=== PATIENT | female | born 1950 | race Caucasian/White ===

== ENCOUNTER 2019-03-13 09:53 | Emergency (ER) | payer OTHER ==
--- OUTSIDE RECORDS SUMMARY | 2019-03-13 09:56 | XMS REPORT | Continuity of Care Document ---
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 [facility] Yeast vaginitis Active Problem 04/19/2016 [facility] CHOLECYSTITIS, Active [facility] UNSPECIFIED Medications Medication Details Route Status Patient Ordering Order Source Instructions Provider Date Acetaminophen 300 1 tab, PO, Q4H, Active MG / Codeine PRN Pain Score 2016 [facility] Phosphate 30 MG 4-6, # 60 tab, Oral Tablet 0 Refill(s) [Tylenol with Codeine #3] Acetaminophen 300 2 tab, Route: Inactive MG / Codeine PO, Drug Form: 2016 [facility] Phosphate 30 MG TAB, Dosing Oral Tablet Weight 85.455, [Tylenol with kg, Q4H, PRN Codeine #3] Pain Score 4-6, Start date: 06/08/17 8:56:00 CDT, Duration: 30 day, Stop date: 07/08/17 8:55:00 CDTNotes: Do not exceed 4gm/day of acetaminophen. (Same as: Tylenol with Codeine # 3) D5NS 1,000 mL 1,000 mL, Rate: No Longer 20 ml/hr, Active 2016 [facility] Infuse over: 50 hr, Route: IV, Dosing Weight 85.455 kg, Total Volume: 1,000, Start date: 06/07/17 14:08:00 CDT, Stop date: 07/07/17 14:07:00 CDT LVP solution with 1,000 mL, Rate: Inactive potassium 1000 mL 100 ml/hr, 2016 [facility] Infuse over: 10 hr, Route: IV, Dosing Weight 85.455 kg, Total Volume: 1,000, Start date: 06/07/17 14:05:00 CDT, Duration: 30 day, Stop date: 07/07/17 14:04:00 CDT ketOROLAC 15 15 mg, 1 mL, No Longer mg/mL injectable Route: IV, Drug Active 2016 [facility] solution form: INJ, Q6H, Dosing Weight 85.455, kg, PRN Pain Score 6-10, Start date: 06/07/17 14:03:00 CDT, Duration: 4 day, Stop date: 06/11/17 14:02:00 CDTNotes: (Same as:Toradol) IV bolus must be given >15 seconds. Give IM administration slowly and deeply into the muscle. Not for use > 4 days. Milk of Magnesia 30 ml, Route: Inactive PO, Drug Form: 2016 [facility] SUSP, Dosing Weight 85.455, kg, ONCE, PRN Heartburn, Start date: 06/06/17 17:52:00 CDTNotes: (Same as: Milk of Magnesia, MOM) Omeprazole 40 mg, Route: No Longer PO, Daily, Active 2016 [facility] Dosing Weight 85.455, kg, Start date: 06/06/17 9:00:00 CDT, Duration: 30 day, Stop date: 07/05/17 9:00:00 CDT Lovenox 40 mg, 0.4 mL, No Longer Route: SUB-Q, Active 2016 [facility] Drug form: INJ, [id number], Start date: 06/06/17 8:00:00 CDT, Duration: 30 day, Stop date: 07/05/17 8:00:00 CDTNotes: (Same as: Lovenox) Entereg 12 mg, 1 cap, No Longer Route: PO, Drug Active 2016 [facility] form: CAP, Q12H, Dosing Weight 85.455, kg, Start date: 06/05/17 21:00:00 CDT, Duration: 7 day, Stop date: 06/12/17 14:00:00 CDTNotes: Same as: Entereg Maximum of 15 doses Alert Restricted medication Alvimopan (Entergen) order form must be completed prior to dispensing. Protonix 40 mg, 1 tab, No Longer Route: PO, Drug Active 2016 [facility] form: ECTAB, Q24H, Start date: 06/05/17 21:00:00 CDT, Duration: 30 day, Stop date: 07/04/17 21:00:00 CDTNotes: Tablet should not be chewed or crushed. (Same as: Protonix) Albuterol 0.833 3 mL, Route: No Longer MG/ML / NEB, Drug Form: Active 2016 [facility] Ipratropium SOLN, Dosing [place] 0.167 Weight 85.455, MG/ML Inhalant kg, RTID, Start Solution date: 06/05/17 20:00:00 CDT, Duration: 30 day, Stop date: 07/05/17 14:00:00 CDTNotes: (Same as: Duoneb) Enoxaparin 40 mg, Route: Inactive SUB-Q, Drug 2016 [facility] form: INJ, [id number], Dosing Weight 85.455, kg, Start date: 06/05/17 17:00:00 CDT, Duration: 30 day, Stop date: 07/04/17 17:00:00 CDT Morphine 30 mg, 30 mL, No Longer Route: IV, Active 2016 [facility] Initial Loading Dose: 2 mg, [employer] Dose: 1 mg, [employer] Lockout: 8 minutes, Continuous Basal Rate: 0 mg, 4 Hour Limit (In MG): 30, Drug Form: INJ, Continuous, Start date: 06/05/17 17:00:00 CDT, Duration: 30 day, Stop date: 07/05/17 1...Notes: Dose: Delay: Basal rate: 4hr limit: (Same as:Cheryl) Ondansetron 4 mg, 2 mL, Inactive Route: IVP, 2016 [facility] Drug form: INJ, ONCE, Dosing Weight 85.455, kg, PRN Nausea & Vomiting, Start date: 06/05/17 16:54:00 CDTNotes: (Same as: Azar) MEDICATION WASTE Product Size: 4 mg Product Wasted: ___ mg Fentanyl 50 microgram, 1 Inactive mL, Route: IV, 2016 [facility] Drug form: INJ, Q5Min, Dosing Weight 85.455, kg, PRN Pain Score 7-10, Start date: 06/05/17 16:54:00 CDT, Duration: 4 doses or times, Stop date: Limited # of timesNotes: (Same as: Sublimaze) Preservative free. Naloxone 0.4 mg, 1 mL, Inactive Route: IVP2016 [facility] Drug form: INJ, Q2MIN, Dosing Weight 85.455, kg, PRN Narcotic Reversal, Start date: 06/05/17 16:54:00 CDT, Duration: 8 doses or times, Stop date: Limited # of timesNotes: Same as Narcan Flumazenil 0.2 mg, 2 mL, Inactive Route: IVP2016 [facility] Drug form: INJ, PRN, Dosing Weight 85.455, kg, PRN Benzodiazepine Reversal, Initial dose, Start date: 06/05/17 16:54:00 CDT, Duration: 30 day, Stop date: 07/05/17 16:53:00 CDTNotes: (Same as: Romazicon) Morphine 2 mg, 1 mL, Inactive Route: IVP2016 [facility] Drug form: INJ, Q5Min, Dosing Weight 85.455, kg, PRN Pain Score 4-6, Start date: 06/05/17 16:54:00 CDT, Duration: 5 doses or times, Stop date: Limited # of timesNotes: (Same as:MORPhine Sulfate) Acetaminophen 1,000 mg, 2 Inactive tab, Route: PO, 2016 [facility] Drug form: TAB, ONCE, Dosing Weight 85.455, kg, PRN Pain Score 1-3, Start date: 06/05/17 16:54:00 CDT, Duration: 1 doses or times, Stop date: Limited # of timesNotes: Max acetaminophen 4000 mg/day (4 gm/day). (Same as: Tylenol Extra Strength) Naloxone 0.04 mg, 0.1 Inactive mL, Route: IVP2016 [facility] Drug form: INJ, Q2MIN, Dosing Weight 85.455, kg, PRN Narcotic Reversal, Start date: 06/05/17 16:41:00 CDT, Stop date: 06/05/17 22:00:00 CDTNotes: Same as Narcan Saline Flush 0.9% 10 ml, Route: No Longer IVP, Drug Form: Active 2016 [facility] INJ, Dosing Weight 85.455, kg, PRN, PRN Line Flush, Start date: 06/05/17 16:41:00 CDT, Duration: 30 day, Stop date: 07/05/17 16:40:00 CDTNotes: (Same as: BD Posiflush) D5W 1/2NS + KCL 1,000 mL, Rate: No Longer 20mEq/L 1000ml 100 ml/hr, Active 2016 [facility] (Premix) 1,000 mL Infuse over: 10 hr, Route: IV, Dosing Weight 85.455 kg, Total Volume: 1,000, Start date: 06/05/17 16:41:00 CDT, Duration: 30 day, Stop date: 07/05/17 16:40:00 CDTNotes: PREMIX IV - Do Not Alter WASTE: F/P - Sink; E - [employer] Ondansetron 4 mg, 2 mL, No Longer Route: IVP, Active 2016 [facility] Drug form: INJ, Q6H, Dosing Weight 85.455, kg, PRN Nausea & Vomiting, Start date: 06/05/17 16:41:00 CDT, Duration: 30 day, Stop date: 07/05/17 16:40:00 CDTNotes: (Same as: Azar) MEDICATION WASTE Product Size: 4 mg Product Wasted: ___ mg Diphenhydramine 25 mg, 1 cap, No Longer Route: PO, Drug Active 2016 [facility] form: CAP, Bedtime, Dosing Weight 85.455, kg, PRN Insomnia, Start date: 06/05/17 16:41:00 CDT, Duration: 30 day, Stop date: 07/05/17 16:40:00 CDTNotes: (Same as: Benadryl) Acetaminophen 650 mg, 2 tab, No Longer Route: PO, Drug Active 2016 [facility] form: TAB, Q4H, Dosing Weight 85.455, kg, PRN Pain 1-3/Temp > 100.4 F, Start date: 06/05/17 16:41:00 CDT, Duration: 30 day, Stop date: 07/05/17 16:40:00 CDTNotes: Do not exceed 4 gm/day. (Same as: Tylenol) neostigmine Route: IV, Drug Inactive [facility] (ANES) form: INJ, 2016, Stop date: 06/05/17 16:36:00 CDT glycopyrrolate Route: IV, Drug Inactive 06/05/ [facility] (ANES) form: [id number], Stop date: 06/05/17 16:36:00 CDT morphine Sulfate Route: IV, Drug Inactive (ANES) form: INJ, 2016, Stop date: 06/05/17 16:10:00 CDT ertapenem (ANES) Route: IV, Drug Inactive form: 2016, Stop date: 06/05/17 14:29:00 CDT glycopyrrolate Route: IV, Drug Inactive (ANES) form: 2016, Stop date: 06/05/17 14:04:00 CDT dexamethasone Route: IV, Drug Inactive (ANES) form: [id number], Stop date: 06/05/17 14:04:00 CDT phenylephrine Route: IV, Drug Inactive (ANES) form: 2016, Stop date: 06/05/17 14:04:00 CDT rocuronium (ANES) Route: IV, Drug Inactive form: 2016, Stop date: 06/05/17 14:04:00 CDT propofol (ANES) Route: IV, Drug Inactive form: [id number], Stop date: 06/05/17 14:04:00 CDT fentaNYL (ANES) Route: IV, Drug Inactive form: [id number], Stop date: 06/05/17 14:04:00 CDT midazolam (ANES) Route: IV, Drug Inactive MH form: SOLN, 2016, Stop date: 06/05/17 14:04:00 CDT ondansetron Route: IV, Drug Inactive MH (ANES) form: [id number], Stop date: 06/05/17 14:04:00 CDT lidocaine (ANES) Route: IV, Drug Inactive form: INJ, 2016 [facility] ONCE, Stop date: 06/05/17 14:04:00 CDT Isolyte S (PH Route: IV, Inactive 7.4) 1000 mL Total Volume: 2016 [facility] (ANES) 1,000, Start date: 06/05/17 12:58:00 CDT, Stop date: 06/05/17 13:58:00 CDT Omeprazole PO, Daily, 0 Active Refill(s) 2016 [facility] multivitamin Daily, 0 Active Refill(s) 2016 [facility] gabapentin PO, 0 Refill(s) Active 2016 [facility] Probiotic Formula 1 cap, PO, Active Daily, 0 2016 [facility] Refill(s) Acetaminophen 1,000 mg, Inactive Route: PO, 2016 [facility] ONCALL, Dosing Weight 85.455, kg, Start date: 06/05/17 12:00:00 CDT, Duration: 30 day, Stop date: 07/05/17 11:59:00 CDT Celebrex 200 mg, Route: Inactive PO, Drug form: 2016 [facility] T[place], Dosing Weight 85.455, kg, Start date: 06/05/17 12:00:00 CDT, Duration: 30 day, Stop date: 07/05/17 11:59:00 CDT gabapentin 600 MG 600 mg, 1 tab, Inactive Oral Tablet Route: PO, 2016 [facility] ONCALL, Dosing Weight 85.455, kg, Start date: 06/05/17 12:00:00 CDT, Duration: 30 day, Stop date: 07/05/17 11:59:00 CDT Calcium Chloride 1,000 mL, Rate: No Longer 0.0014 MEQ/ML / 25 ml/hr, Active 2016 [facility] Potassium Infuse over: 40 Chloride 0.004 hr, Route: IV, MEQ/ML / Sodium Dosing Weight Chloride 0.103 85.455 kg, MEQ/ML / Sodium Total Volume: Lactate 0.028 1,000, Start MEQ/ML Injectable date: 06/05/17 Solution 11:27:00 CDT, Duration: 30 day, Stop date: 07/05/17 11:26:00 CDT Entereg 12 mg, 1 cap, Inactive Route: PO, Drug 2016 [facility] form: CAP, ONCE, Start date: 06/05/17 7:38:00 CDT, Stop date: 06/05/17 7:38:00 CDTNotes: Same as: Entereg Maximum of 15 doses Alert Restricted medication Alvimopan (Entergen) order form must be completed prior to dispensing. INVanz + sodium 1 gm, Route: No Longer chloride 0.9% INJ IVPB, ONCE, Active 2016 [facility] 100 mL Start date: 06/05/17 7:36:00 CDT, Stop date: 06/05/17 7:36:00 CDT, ABX Indication: Other (specify in Comments)Notes: (Same as: INVanz) Refrigerate. NOT COMPATIBLE WITH D5W. Stable in refrigerator for 24 hours MEDICATION WASTE Product Size: 1000 mg Product Wasted: ___ mg Allergies, Adverse Reactions, Alerts Substance Category Reaction Severity Reaction Status Date Comments Source type Reported Immunizations Immunization Date Given Site Status Last Updated Comments Source Results Order Name Results Value Reference Date Interpretation Comments Source Range ELECTROLYT AGAP 13.3 meq/L 10.0 - 06/07 ES 20.0 [facility] ELECTROLYT eGFR 77 06/07 Result Comment: The eGFR is calculated using the CKD-EPI formula. In most young, healthy individuals the eGFR will be >90 mL/ min/1.73m2. The eGFR declines with age. An eGFR of 60-89 may be normal in [facility] mL/min/1.7 /2017 some populations, particularly the elderly, for whom the CKD-EPI formula has not been extensively validated. Use of the eGFR is not recommended in the following populations: [facility] 3m2 Individuals with unstable creatinine concentrations, including patients and those with serious co-morbid conditions. Patients with extremes in muscle mass or diet. The data above are obtained from the National Kidney Disease Education Program (NKDEP) which additionally recommends that when the eGFR is used in patients with extremes of body mass index for purposes of drug dosing, the eGFR should be multiplied by the estimated BMI. ELECTROLYT Creatinine 0.80 mg/dL 0.50 - 06/07 ES Lvl 1.40 /2016 [facility] ELECTROLYT Calcium Lvl 8.6 mg/dL 8.5 - 10.5 06/07 [facility] ELECTROLYT Glucose Lvl 103 mg/dL 70 - 99 06/07 [facility] ELECTROLYT BUN 5 mg/dL 7 - 22 06/07 [facility] ELECTROLYT CO2 23 meq/L 24 - 32 06/07 [facility] ELECTROLYT Chloride Lvl 98 meq/L 95 - 109 06/07 [facility] ELECTROLYT Sodium Lvl 130 meq/L 135 - 145 06/07 [facility] ELECTROLYT Potassium 4.3 meq/L 3.5 - 5.1 06/07 Lv [facility] HEMATOLOGY MPV 8.8 fL 7.4 - 10.4 06/07 [facility] HEMATOLOGY Platelet 204 K/CMM 133 - 450 06/07 [facility] HEMATOLOGY RDW 13.6 % 11.5 - 06/07 14. [facility] HEMATOLOGY MCHC 34.0 g/dL 32.0 - 06/07 36.0 [facility] HEMATOLOGY MCV 91.1 fL 80.0 - 06/07 98.0 [facility] HEMATOLOGY MCH 30.9 pg 27.0 - 06/07 31.0 [facility] HEMATOLOGY RBC 4.57 M/CMM 4.20 - 06/07 5. [facility] HEMATOLOGY Hgb 14.2 g/dL 12.0 - 06/07 16. [facility] HEMATOLOGY Hct 41.7 % 36.0 - 06/07 48.0 [facility] HEMATOLOGY WBC 8.7 K/CMM 3.7 - 10.4 06/07 [facility] HEMATOLOGY Basophils 0.2 % 0.0 - 1.0 06/07 [facility] HEMATOLOGY Lymphocytes 1.6 K/CMM 1.0 - 5.5 06/07 [facility] HEMATOLOGY Segs-Bands # 6.4 K/CMM 1.5 - 8.1 06/07 [facility] HEMATOLOGY Eosinophils 0.1 K/CMM 0.0 - 0.5 06/07 [facility] HEMATOLOGY Monocytes # 0.6 K/CMM 0.0 - 0.8 06/07 [facility] HEMATOLOGY Lymphocytes 18.7 % 20.0 - 06/07 40.0 [facility] HEMATOLOGY Eosinophils 0.9 % 0.0 - 4.0 06/07 [facility] HEMATOLOGY Monocytes 7.2 % 2.0 - 12.0 06/07 [facility] HEMATOLOGY Segs 73.0 % 45.0 - 06/07 75.0 [facility] CHEM PANEL Magnesium 2.2 mg/dL 1.8 - 2.4 06/06 [facility] CHEM PANEL Phosphorus 2.6 mg/dL 2.5 - 4.5 06/06 [facility] CHEM PANEL Creatinine 0.90 mg/dL 0.50 - 06/06 [facility] Lvl 1.40 [facility] CHEM PANEL Sodium Lvl 132 meq/L 135 - 145 06/06 [facility] CHEM PANEL CO2 24 meq/L 24 - 32 06/06 [facility] CHEM PANEL AGAP 11.1 meq/L 10.0 - 06/06 MH 20.0 [facility] CHEM PANEL Chloride Lvl 101 meq/L 95 - 109 06/06 [facility] CHEM PANEL Calcium Lvl 8.7 mg/dL 8.5 - 10.5 06/06 [facility] CHEM PANEL eGFR 66 06/06 Result Comment: The eGFR is calculated using the CKD-EPI formula. In most young, healthy individuals the eGFR will be >90 mL/ min/1.73m2. The eGFR declines with age. An eGFR of 60-89 may be normal in mL/min/1. some populations, particularly the elderly, for whom the CKD-EPI formula has not been extensively validated. Use of the eGFR is not recommended in the following populations: [place] [id number] Individuals with unstable creatinine concentrations, including patients and those with serious co-morbid conditions. Patients with extremes in muscle mass or diet. The data above are obtained from the National Kidney Disease Education Program (NKDEP) which additionally recommends that when the eGFR is used in patients with extremes of body mass index for purposes of drug dosing, the eGFR should be multiplied by the estimated BMI. CHEM PANEL Potassium 4.1 meq/L 3.5 - 5.1 06/06 [facility] CHEM PANEL BUN 9 mg/dL 7 - 22 06/06 [facility] CHEM PANEL Glucose Lvl 131 mg/dL 70 - 99 06/06 [facility] HEMATOLOGY Monocytes # 0.9 K/CMM 0.0 - 0.8 06/06 [facility] HEMATOLOGY Lymphocytes 1.4 K/CMM 1.0 - 5.5 06/06 MH # /2016 [facility] HEMATOLOGY Segs-Bands # 8.9 K/CMM 1.5 - 8.1 06/06 [facility] HEMATOLOGY Monocytes 7.8 % 2.0 - 12.0 06/06 [facility] Lymphocytes 12.3 % 20.0 - 06/06 MH 40.0 /2017 [facility] HEMATOLOGY Eosinophils 0.1 % 0.0 - 4.0 06/06 [facility] HEMATOLOGY Basophils 0.3 % 0.0 - 1.0 06/06 [facility] HEMATOLOGY Segs 79.5 % 45.0 - 06/06 MH 75.0 /2016 [facility] HEMATOLOGY Hgb 14.5 g/dL 12.0 - 06/06 16.0 [facility] HEMATOLOGY WBC 11.2 K/CMM 3.7 - 10.4 06/06 [facility] RBC 4.67 M/CMM 4.20 - 06/06 MH 5.40 /2016 [facility] MCHC 34.2 g/dL 32.0 - 06/06 36.0 [facility] HEMATOLOGY RDW 14.0 % 11.5 - 06/06 14.5 [facility] HEMATOLOGY MPV 9.2 fL 7.4 - 10.4 06/06 [facility] HEMATOLOGY Platelet 200 K/CMM 133 - 450 06/06 [facility] Hct 42.4 % 36.0 - 06/06 48.0 [facility] MCH 31.1 pg 27.0 - 06/06 31.0 [facility] MCV 90.8 fL 80.0 - 06/06 98.0 [facility] Chest Chest 1view Patient Name: ELIJAH CHARLES 06/06 - 1view DX DX /2016 - [facility] : 1950; Age: 66 years y/o Female MR: [id number] Read by: Maldonado Severino MD Dictated Date/time: 06/06/17 08:31 Electronically Signed by: Maldonado Severino MD 06/06/17 08:32 FINAL REPORT Study: Chest 1view DX dated 06/06/2017. Clinical Indication: COPD Comparison: None Mildly decreased lung volumes. Heart size is normal. Aortic calcification. Mediastinal structures otherwise unremarkable. Mild patchy consolidation both lung bases may be due to atelectasis, pneumonia o r other nonspecific alveolitis. No other focal infiltrates within the lungs , no edema and no pneumothorax. SL: [id number] BLOOD BANK ABO/Rh O NEG 06/05 RESULTS /2016 [facility] BLOOD BANK Antibody Negative 06/05 RESULTS Scrn [facility] (06/05/17 11:29 AM) ELECTROLYT AGAP 10.6 meq/L 10.0 - 06/05 ES 20.0 [facility] ELECTROLYT eGFR 58 06/05 Result Comment: The eGFR is calculated using the CKD-EPI formula. In most young, healthy individuals the eGFR will be >90 mL/ min/1.73m2. The eGFR declines with age. An eGFR of 60-89 may be normal in [facility] mL/min/1. some populations, particularly the elderly, for whom the CKD-EPI formula has not been extensively validated. Use of the eGFR is not recommended in the following populations: [facility] 3m2 Individuals with unstable creatinine concentrations, including patients and those with serious co-morbid conditions. Patients with extremes in muscle mass or diet. The data above are obtained from the National Kidney Disease Education Program (NKDEP) which additionally recommends that when the eGFR is used in patients with extremes of body mass index for purposes of drug dosing, the eGFR should be multiplied by the estimated BMI. ELECTROLYT Glucose Lvl 93 mg/dL 70 - 99 06/05 ES [facility] ELECTROLYT BUN 12 mg/dL 7 - 22 06/05 ES [facility] ELECTROLYT Creatinine 1.00 mg/dL 0.50 - 06/05 [facility] Lvl 1.40 [facility] ELECTROLYT CO2 27 meq/L 24 - 32 06/05 ES [facility] ELECTROLYT Calcium Lvl 9.3 mg/dL 8.5 - 10.5 06/05 ES [facility] ELECTROLYT Chloride Lvl 104 meq/L 95 - 109 06/05 ES [facility] ELECTROLYT Sodium Lvl 138 meq/L 135 - 145 06/05 ES [facility] ELECTROLYT Potassium 3.6 meq/L 3.5 - 5.1 06/05 ES Lvl /2016 [facility] HEMATOLOGY INR 1.06 0.85 - 06/05 1.17 [facility] HEMATOLOGY PT 14.0 s 12.0 - 06/05 14.7 [facility] HEMATOLOGY PTT 34.8 s 22.9 - 06/05 MH 35.8 /2017 [facility] HEMATOLOGY Basophils # 0.0 K/CMM 0.0 - 0.2 06/05 [facility] HEMATOLOGY Eosinophils 0.1 K/CMM 0.0 - 0.5 06/05 MH # /2016 [facility] HEMATOLOGY Lymphocytes 1.6 K/CMM 1.0 - 5.5 06/05 MH # /2016 [facility] HEMATOLOGY Monocytes # 0.4 K/CMM 0.0 - 0.8 06/05 [facility] HEMATOLOGY Basophils 0.6 % 0.0 - 1.0 06/05 [facility] HEMATOLOGY Eosinophils 2.5 % 0.0 - 4.0 06/05 [facility] HEMATOLOGY Segs 56.9 % 45.0 - 06/05 75.0 [facility] HEMATOLOGY Lymphocytes 32.2 % 20.0 - 06/05 40.0 [facility] HEMATOLOGY Monocytes 7.8 % 2.0 - 12.0 06/05 [facility] HEMATOLOGY Segs-Bands # 2.9 K/CMM 1.5 - 8.1 06/05 [facility] HEMATOLOGY MPV 9.3 fL 7.4 - 10.4 06/05 [facility] HEMATOLOGY Hct 42.3 % 36.0 - 06/05 48.0 [facility] HEMATOLOGY WBC 5.1 K/CMM 3.7 - 10.4 06/05 [facility] HEMATOLOGY Platelet 213 K/CMM 133 - 450 06/05 [facility] HEMATOLOGY RDW 13.6 % 11.5 - 06/05 14. [facility] HEMATOLOGY MCH 31.0 pg 27.0 - 06/05 31.0 [facility] HEMATOLOGY MCV 89.1 fL 80.0 - 06/05 98.0 [facility] HEMATOLOGY RBC 4.75 M/CMM 4.20 - 06/05 5.40 [facility] HEMATOLOGY Hgb 14.7 g/dL 12.0 - 06/05 16.0 [facility] HEMATOLOGY MCHC 34.8 g/dL 32.0 - 06/05 36.0 [facility] Vital Signs Vital Sign Value Date Comments [facility] Systolic (mm Hg) 129 06/08/2017 [facility] Diastolic (mm Hg) 84 06/08/2017 [facility] Heart Rate 65 06/08/2017 [facility] Respitory Rate 18 06/08/2017 [facility] Temperature Oral (F) 97.3 F 06/08/2017 [facility] Systolic (mm Hg) 142 06/08/2017 [facility] Diastolic (mm Hg) 82 06/08/2017 [facility] Heart Rate 79 06/08/2017 [facility] Temperature Oral (F) 98.5 F 06/08/2017 [facility] Respitory Rate 18 06/08/2017 [facility] Respitory Rate 20 06/08/2017 [facility] Systolic (mm Hg) 129 06/08/2017 [facility] Diastolic (mm Hg) 79 06/08/2017 [facility] Temperature Oral (F) 98.3 F 06/08/2017 [facility] Heart Rate 91 06/08/2017 [facility] Height 162.56 cm 06/06/2017 [facility] Weight 85.455 06/06/2017 [facility] BMI Calculated 32.34 06/06/2017 [facility] Weight 85.455 06/02/2017 [facility] BMI Calculated 32.34 06/02/2017 [facility] Height 162.56 cm 06/02/2017 [facility] Encounters Location Location Encounter Encounter Reason Attending ADM DC Status Source Details Type Number For Provider Date Date Visit Moonat Unknown [id number] 02/22 02/22 [facility] [id number] [id number] [facility] Unknown [id number] 02/22 02/22 [facility] [id number] [facility] [id number] [facility] Unknown [id number] 04/18 04/18 [facility] [id number] [facility] [id number] [facility] [id number] [facility] Procedures Procedure Code Date Perfomer Comments Source Abdominal [id number] [facility] hysterectomy Hip replacement [id number] [facility] Procedure on wrist [id number] [facility] Tonsillectomy [id number] [facility]
--- OUTSIDE RECORDS SUMMARY | 2019-03-13 09:57 | XMS REPORT ---
:1950 Author Organization eClinicalWorks Care Team Providers Name Role Phone AndregastonOfe Provider Role Unavailable Encounters Encounter Location Date Unknown [facility] February 23, [address] 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 2012April 11, 2016 Last colonoscopy: . 2012April 11, 2016 last mammogram: . 2012April 11, 2016 Tobacco Use: . Are you a:: never smoker April 11, 2016 Marital Status: . April 11, 2016 Alcohol: yes. 1 Glass wine nightly to help sleep April 11, 2016 Summary Purpose eClinicalWorks Submission
--- OUTSIDE RECORDS SUMMARY | 2019-03-13 09:57 | XMS REPORT ---
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 2012February 23, 2016 Last colonoscopy: . 2012February 23, 2016 last mammogram: . 2012February 23, 2016 Tobacco Use: . Are you a:: never smoker February 23, 2016 Marital Status: . February 23, 2016 Alcohol: yes. 1 Glass wine nightly to help sleep February 23, 2016 Summary Purpose eClinicalWorks Submission
[2019-03-13] MEDS ORDERED: NA CHLORIDE 0.9% 500 ML ONE (10:36)
[2019-03-13] MEDS ORDERED: LEVALBUTEROL 1.25 MG/3 ML NEB ONE (10:36)
[2019-03-13 10:43] LABS: Absolute Lymphocytes (CBC) 1.8 K/uL (0.7-4.9); Absolute Monocytes 0.3 K/uL (0.1-1.3); Absolute Neutrophil 2.3 K/uL (1.8-8.0); Basophils % 1.2 % (0-1.3); Hematocrit 41.8 % (36.0-45.0); Lymphocytes % 37.9 % (15.3-44.8); Monocytes % 7.5 % (3.3-12.3); RBC Red Blood Cell Count 4.57 M/uL (3.86-4.86)
[2019-03-13 10:57] LABS: Protime INR 0.96
[2019-03-13 10:58] LABS: BUN Blood Urea Nitrogen 20 mg/dL (7-18); Bicarbonate 27 mmol/L (21-32); Glucose Level 86 mg/dL (74-106); NT PRO-BNP 83 pg/mL (<125); Potassium 3.9 mmol/L (3.5-5.1); Sodium Level 140 mmol/L (136-145); Troponin (Emerg Dept Use Only) < 0.02 ng/mL (0.0-0.045)
--- NOTE | 2019-03-13 11:01 | RAD REPORT ---
EXAM DESCRIPTION: RAD - Chest Single View - 03/13/2019 10:25 am CLINICAL HISTORY: DYSPNEA Chest pain. COMPARISON: Chest Pa And Lat (2 Views) dated 03/14/2017; Chest Pa And Lat (2 Views) dated 06/21/2016; CHEST PA AND LAT 2 VIEW dated 05/05/2014; CHEST PA AND LAT 2 VIEW dated 12/10/2013 FINDINGS: Portable technique limits examination quality. The lungs are grossly clear. The heart is normal in size. No displaced fractures. IMPRESSION: No acute intrathoracic process suspected.
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
[2019-03-13] MEDS ORDERED: METHYLPREDNISOLONE 125 MG INJ ONE (11:42)
[2019-03-13 15:15] VITALS: TEMP 97.9
[2019-03-13 15:16] VITALS: BP 126/54; O2SAT 100
== END 2019-03-13 11:53 | disposition home or self-care (01) ==
LOC: ER 09:53
DX: R06.00 Dyspnea, unspecified (principal); R05 Cough; E86.0 Dehydration
CPT/HCPCS: 96361; 93005; 85025; 80048; 36415; 85610; 85730; 84484; 84145; 83880; 71045; 96374; 99285; J2930

== ENCOUNTER 2020-11-26 12:31 | Emergency (ER) | payer OTHER ==
--- OUTSIDE RECORDS SUMMARY | 2020-11-26 12:33 | XMS REPORT | Continuity of Care Document ---
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 [facility] Yeast vaginitis Active Problem 04/19/2016 [facility] Gastroesophageal Active Problem 06/11/2017 reflux disease [facility] (disorder) Pulmonary emphysema Active Problem 06/11/2017 (disorder) [facility] CHOLECYSTITIS, Active UNSPECIFIED [facility] Medications Medication Details Route Status Patient Ordering Order Source Instructions Provider Date Acetaminophen 300 1 tab, PO, Q4H, Active MG / Codeine PRN Pain Score 2017 [facility] Phosphate 30 MG 4-6, # 60 tab, Oral Tablet 0 Refill(s) [Tylenol with Codeine #3] Acetaminophen 300 Notes: Do not Inactive MG / Codeine exceed 4gm/day 2017 [facility] Phosphate 30 MG of Oral Tablet acetaminophen. [Tylenol with (Same as: Codeine #3] Tylenol with Codeine # 3) D5NS 1,000 mL 1,000 mL, Rate: No Longer 20 ml/hr, Active 2016 [facility] Infuse over: 50 hr, Route: IV, Dosing Weight 85.455 kg, Total Volume: 1,000, Start date: 06/07/17 14:08:00 CDT, Stop date: 07/07/17 14:07:00 CDT LVP solution with 1,000 mL, Rate: Inactive 06/07 potassium 1000 mL 100 ml/hr, 2017 [facility] Infuse over: 10 hr, Route: IV, Dosing Weight 85.455 kg, Total Volume: 1,000, Start date: 06/07/17 14:05:00 CDT, Duration: 30 day, Stop date: 07/07/17 14:04:00 CDT ketOROLAC 15 4 days. No Longer mg/mL injectable Active [address] [facility] [address] solution Milk of Magnsukhi Notes: (Same Inactive H as: Milk of 2016 [facility] Magnsukhi, MOM) Omeprazole 40 mg, Route: No Longer PO, Daily, Active 2016 [facility] Dosing Weight 85.455, kg, Start date: 06/06/17 9:00:00 CDT, Duration: 30 day, Stop date: 07/05/17 9:00:00 CDT Lovenox Notes: (Same No Longer as: Lovenox) Active 2016 [facility] Entereg Notes: Same as: No Longer Entereg Active 2016 [facility] Maximum of 15 doses Alert Restricted medication Alvimopan (Entergen) order form must be completed prior to dispensing. Protonix Notes: Tablet No Longer should not be Active 2016 [facility] chewed or crushed. (Same as: Protonix) Albuterol 0.833 Notes: (Same No Longer H MG/ML / as: Duoneb) Active 2016 [facility] Ipratropium Dunbar 0.167 MG/ML Inhalant Solution Enoxaparin 40 mg, Route: Inactive SUB-Q, Drug 2016 [facility] form: INJ, [id number], Dosing Weight 85.455, kg, Start date: 06/05/17 17:00:00 CDT, Duration: 30 day, Stop date: 07/04/17 17:00:00 CDT Morphine Notes: Dose: No Longer Delay: Active 2016 [facility] Basal rate: 4hr limit: (Same as:Rapi-Ject) Ondansetron Notes: (Same Inactive as: Zofran) 2016 [facility] MEDICATION WASTE Product Size: 4 mg Product Wasted: ___ mg Fentanyl Notes: (Same Inactive as: Sublimaze) 2016 [facility] Preservative free. Naloxone Notes: Same as Inactive Narcan 2016 [facility] Flumazenil Notes: (Same Inactive as: Romazicon) 2016 [facility] Morphine Notes: (Same Inactive as:MORPhine 2016 [facility] Sulfate) Acetaminophen Notes: Max Inactive acetaminophen 2017 [facility] 4000 mg/day (4 gm/day). (Same as: Tylenol Extra Strength) Naloxone Notes: Same as Inactive Narcan 2016 [facility] Saline Flush 0.9% Notes: (Same No Longer as: BD Active 2016 [facility] Posiflush) D5W 1/2NS + KCL Notes: PREMIX No Longer 20mEq/L 1000ml IV - Do Not Active 2016 [facility] (Premix) 1,000 mL Alter WASTE: F/P - Sink; E - [employer] Ondansetron Notes: (Same No Longer as: Zofran) Active 2016 [facility] MEDICATION WASTE Product Size: 4 mg Product Wasted: ___ mg Diphenhydramine Notes: (Same No Longer H as: Benadryl) Active 2016 [facility] Acetaminophen Notes: Do not No Longer exceed 4 Active 2016 [facility] gm/day. (Same as: Tylenol) neostigmine Route: IV, Drug Inactive (ANES) form: INJ, 2016 [facility] , Stop date: 06/05/17 16:36:00 CDT glycopyrrolate Route: IV, Drug Inactive (ANES) form: INJ2016 [facility] , Stop date: 06/05/17 16:36:00 CDT morphine Sulfate Route: IV, Drug Inactive (ANES) form: 2016 [facility] , Stop date: 06/05/17 16:10:00 CDT ertapenem (ANES) Route: IV, Drug Inactive form: INJ, 2016 [facility] , Stop date: 06/05/17 14:29:00 CDT glycopyrrolate Route: IV, Drug Inactive (ANES) form: 2016 [facility] , Stop date: 06/05/17 14:04:00 CDT dexamethasone Route: IV, Drug Inactive H (ANES) form: 2016 [facility] , Stop date: 06/05/17 14:04:00 CDT phenylephrine Route: IV, Drug Inactive 06/05/ M H (ANES) form: 2016 [facility] ONCE, Stop date: 06/05/17 14:04:00 CDT rocuronium (ANES) Route: IV, Drug Inactive 06/05 form: INJ, 2016 [facility] , Stop date: 06/05/17 14:04:00 CDT propofol (ANES) Route: IV, Drug Inactive form: INJ, 2016 [facility] ONCE, Stop date: 06/05/17 14:04:00 CDT fentaNYL (ANES) Route: IV, Drug Inactive form: INJ, 2016 [facility] , Stop date: 06/05/17 14:04:00 CDT midazolam (ANES) Route: IV, Drug Inactive form: SOLN, 2016 [facility] , Stop date: 06/05/17 14:04:00 CDT ondansetron Route: IV, Drug Inactive (ANES) form: INJ, 2016 [facility] , Stop date: 06/05/17 14:04:00 CDT lidocaine (ANES) Route: IV, Drug Inactive form: INJ, 2016 [facility] , Stop date: 06/05/17 14:04:00 CDT Isolyte S (PH Route: IV, Inactive 7.4) 1000 mL Total Volume: 2016 [facility] (ANES) 1,000, Start date: 06/05/17 12:58:00 CDT, Stop date: 06/05/17 13:58:00 CDT Omeprazole PO, Daily, 0 Active Refill(s) 2016 [facility] multivitamin Daily, 0 Active Refill(s) 2016 [facility] gabapentin PO, 0 Refill(s) Active 2016 [facility] Probiotic Formula 1 cap, PO, Active Daily, 0 2016 [facility] Refill(s) Acetaminophen 1,000 mg, Inactive Route: PO, 2016 [facility] ONCALL, Dosing Weight 85.455, kg, Start date: 06/05/17 12:00:00 CDT, Duration: 30 day, Stop date: 07/05/17 11:59:00 CDT Celebrex 200 mg, Route: Inactive PO, Drug form: 2016 [facility] CAP, ONCALL, Dosing Weight 85.455, kg, Start date: 06/05/17 12:00:00 CDT, Duration: 30 day, Stop date: 07/05/17 11:59:00 CDT gabapentin 600 MG 600 mg, 1 tab, Inactive Oral Tablet Route: PO, 2016 [facility] ONCALL, Dosing Weight 85.455, kg, Start date: 06/05/17 12:00:00 CDT, Duration: 30 day, Stop date: 07/05/17 11:59:00 CDT Calcium Chloride 1,000 mL, Rate: No Longer 06/05 0.0014 MEQ/ML / 25 ml/hr, Active 2016 [facility] est Potassium Infuse over: 40 Chloride 0.004 hr, Route: IV, MEQ/ML / Sodium Dosing Weight Chloride 0.103 85.455 kg, MEQ/ML / Sodium Total Volume: Lactate 0.028 1,000, Start MEQ/ML Injectable date: 06/05/17 Solution 11:27:00 CDT, Duration: 30 day, Stop date: 07/05/17 11:26:00 CDT Entereg Notes: Same as: Inactive Entereg 2016 [facility] Maximum of 15 doses Alert Restricted medication Alvimopan (Entergen) order form must be completed prior to dispensing. INVanz + sodium Notes: (Same No Longer H chloride 0.9% INJ as: INVanz) Active 2016 [facility] 100 mL Refrigerate. NOT COMPATIBLE WITH D5W. Stable in refrigerator for 24 hours MEDICATION WASTE Product Size: 1000 mg Product Wasted: ___ mg Allergies, Adverse Reactions, Alerts No Known Medication Allergies Immunizations No Data Provided for This Section Results Order Name Results Value Reference Date Interpretation Comments Wendy rce Range ELECTROLYTE AGAP 13.3 10.0 - 06/07 S 20.0 /2016 [facility] ELECTROLYTE eGFR 77 06/07 Result S /2016 Comment: The [facility] eGFR is calculated using the CKD-EPI formula. In most young, healthy individuals the eGFR will be >90 mL/min/1.73m2 . The eGFR declines with age. An eGFR of 60-89 may be normal in some populations, particularly the elderly, for whom the CKD-EPI formula has not been extensively validated. Use of the eGFR is not recommended in the following populations:< br/>
Aaliyah viduals with unstable creatinine concentration s, including patients and those with serious co-morbid conditions.<b r/>
Patie nts with extremes in muscle mass or diet.

The data above are obtained from the National Kidney Disease Education Program (NKDEP) which additionally recommends that when the eGFR is used in patients with extremes of body mass index for purposes of drug dosing, the eGFR should be multiplied by the estimated BMI. ELECTROLYTE Creatinine 0.80 0.50 - 06/07 MH S Lvl 1.40 /2016 [facility] ELECTROLYTE Calcium Lvl 8.6 8.5 - 10.5 06/07 S /2016 [facility] ELECTROLYTE Glucose Lvl 103 70 - 99 06/07 S /2016 [facility] ELECTROLYTE BUN 5 7 - 22 06/07 S [facility] ELECTROLYTE CO2 23 24 - 32 06/07 S /2016 [facility] ELECTROLYTE Chloride Lvl 98 95 - 109 06/07 S /2016 [facility] ELECTROLYTE Sodium Lvl 130 135 - 145 06/07 S /2016 [facility] ELECTROLYTE Potassium 4.3 3.5 - 5.1 06/07 S Lvl /2016 [facility] HEMATOLOGY MPV 8.8 7.4 - 10.4 06/07 [facility] HEMATOLOGY Platelet 204 133 - 450 06/07 /2016 [facility] HEMATOLOGY RDW 13.6 11.5 - 06/07 MH 14.5 /2016 [facility] HEMATOLOGY MCHC 34.0 32.0 - 06/07 MH 36.0 /2016 [facility] HEMATOLOGY MCV 91.1 80.0 - 06/07 MH 98.0 /2017 [facility] HEMATOLOGY MCH 30.9 27.0 - 06/07 MH 31.0 /2017 [facility] HEMATOLOGY RBC 4.57 4.20 - 06/07 MH 5.40 /2017 [facility] HEMATOLOGY Hgb 14.2 12.0 - 06/07 MH 16.0 [facility] HEMATOLOGY Hct 41.7 36.0 - 06/07 MH 48.0 /2017 [facility] HEMATOLOGY WBC 8.7 3.7 - 10.4 06/07 /2016 [facility] HEMATOLOGY Basophils 0.2 0.0 - 1.0 06/07 /2016 [facility] HEMATOLOGY Lymphocytes 1.6 1.0 - 5.5 06/07 MH # /2017 [facility] HEMATOLOGY Segs-Bands # 6.4 1.5 - 8.1 06/07 /2016 [facility] HEMATOLOGY Eosinophils 0.1 0.0 - 0.5 06/07 MH # /2017 [facility] HEMATOLOGY Monocytes # 0.6 0.0 - 0.8 06/07 [facility] HEMATOLOGY Lymphocytes 18.7 20.0 - 06/07 MH 40.0 /2017 [facility] HEMATOLOGY Eosinophils 0.9 0.0 - 4.0 06/07 /2016 [facility] HEMATOLOGY Monocytes 7.2 2.0 - 12.0 06/07 [facility] HEMATOLOGY Segs 73.0 45.0 - 06/07 MH 75.0 /2017 [facility] CHEM PANEL Magnesium 2.2 1.8 - 2.4 06/06 MH Lvl /2016 [facility] CHEM PANEL Phosphorus 2.6 2.5 - 4.5 06/06 [facility] CHEM PANEL Creatinine 0.90 0.50 - 06/06 MH Lvl 1.40 /2016 [facility] CHEM PANEL Sodium Lvl 132 135 - 145 06/06 [facility] CHEM PANEL CO2 24 24 - 32 06/06 [facility] CHEM PANEL AGAP 11.1 10.0 - 06/06 MH 20.0 [facility] CHEM PANEL Chloride Lvl 101 95 - 109 06/06 [facility] CHEM PANEL Calcium Lvl 8.7 8.5 - 10.5 06/06 [facility] CHEM PANEL eGFR 66 06/06 Comment: The [facility] eGFR is calculated using the CKD-EPI formula. In most young, healthy individuals the eGFR will be >90 mL/min/1.73m2 . The eGFR declines with age. An eGFR of 60-89 may be normal in some populations, particularly the elderly, for whom the CKD-EPI formula has not been extensively validated. Use of the eGFR is not recommended in the following populations:< br/>
Aaliyah viduals with unstable creatinine concentration s, including patients and those with serious co-morbid conditions.<b r/>
Patie nts with extremes in muscle mass or diet.

The data above are obtained from the National Kidney Disease Education Program (NKDEP) which additionally recommends that when the eGFR is used in patients with extremes of body mass index for purposes of drug dosing, the eGFR should be multiplied by the estimated BMI. CHEM PANEL Potassium 4.1 3.5 - 5.1 06/06 [facility] CHEM PANEL BUN 9 7 - 22 06/06 [facility] CHEM PANEL Glucose Lvl 131 70 - 99 06/06 [facility] Monocytes # 0.9 0.0 - 0.8 06/06 /2016 [facility] Lymphocytes 1.4 1.0 - 5.5 06/06 MH # /2017 [facility] HEMATOLOGY Segs-Bands # 8.9 1.5 - 8.1 06/06 [facility] Monocytes 7.8 2.0 - 12.0 06/06 [facility] Lymphocytes 12.3 20.0 - 06/06 MH 40.0 /2017 [facility] HEMATOLOGY Eosinophils 0.1 0.0 - 4.0 06/06 [facility] HEMATOLOGY Basophils 0.3 0.0 - 1.0 06/06 [facility] HEMATOLOGY Segs 79.5 45.0 - 06/06 MH 75.0 /2016 [facility] Hgb 14.5 12.0 - 06/06 MH 16.0 [facility] WBC 11.2 3.7 - 10.4 06/06 [facility] RBC 4.67 4.20 - 06/06 MH 5.40 /2016 [facility] MCHC 34.2 32.0 - 06/06 MH 36.0 /2016 [facility] RDW 14.0 11.5 - 06/06 MH 14.5 [facility] MPV 9.2 7.4 - 10.4 06/06 [facility] Platelet 200 133 - 450 06/06 [facility] Hct 42.4 36.0 - 06/06 48.0 [facility] MCH 31.1 27.0 - 06/06 MH 31.0 [facility] MCV 90.8 80.0 - 06/06 98.0 [facility] BLOOD BANK ABO/Rh O NEG 06/05 RESULTS /2016 [facility] BLOOD BANK Antibody Negative 06/05 RESULTS Scrn (06/05/17 11:29 AM) /2016 [facility] ELECTROLYTE AGAP 10.6 10.0 - 06/05 S 20.0 [facility] ELECTROLYTE eGFR 58 06/05 Result S /2016 Comment: The [facility] eGFR is calculated using the CKD-EPI formula. In most young, healthy individuals the eGFR will be >90 mL/min/1.73m2 . The eGFR declines with age. An eGFR of 60-89 may be normal in some populations, particularly the elderly, for whom the CKD-EPI formula has not been extensively validated. Use of the eGFR is not recommended in the following populations:< br/>
Aaliyah viduals with unstable creatinine concentration s, including patients and those with serious co-morbid conditions.<b r/>
Patie nts with extremes in muscle mass or diet.

The data above are obtained from the National Kidney Disease Education Program (NKDEP) which additionally recommends that when the eGFR is used in patients with extremes of body mass index for purposes of drug dosing, the eGFR should be multiplied by the estimated BMI. ELECTROLYTE Glucose Lvl 93 70 - 99 06/05 MH S /2016 [facility] ELECTROLYTE BUN 12 7 - 22 06/05 S [facility] ELECTROLYTE Creatinine 1.00 0.50 - 06/05 MH S Lvl 1.40 /2016 [facility] ELECTROLYTE CO2 27 24 - 32 06/05 S [facility] ELECTROLYTE Calcium Lvl 9.3 8.5 - 10.5 06/05 S [facility] ELECTROLYTE Chloride Lvl 104 95 - 109 06/05 S [facility] ELECTROLYTE Sodium Lvl 138 135 - 145 06/05 S [facility] ELECTROLYTE Potassium 3.6 3.5 - 5.1 06/05 S Lvl /2017 [facility] HEMATOLOGY INR 1.06 0.85 - 06/05 MH 1.17 /2016 [facility] HEMATOLOGY PT 14.0 12.0 - 06/05 MH 14.7 /2016 [facility] HEMATOLOGY PTT 34.8 22.9 - 06/05 MH 35.8 /2017 [facility] HEMATOLOGY Basophils # 0.0 0.0 - 0.2 06/05 [facility] HEMATOLOGY Eosinophils 0.1 0.0 - 0.5 / MH # /2017 [facility] HEMATOLOGY Lymphocytes 1.6 1.0 - 5.5 / MH # /2017 [facility] HEMATOLOGY Monocytes # 0.4 0.0 - 0.8 06/05 [facility] HEMATOLOGY Basophils 0.6 0.0 - 1.0 06/05 [facility] HEMATOLOGY Eosinophils 2.5 0.0 - 4.0 06/05 /2016 [facility] HEMATOLOGY Segs 56.9 45.0 - 06/05 MH 75.0 /2017 [facility] HEMATOLOGY Lymphocytes 32.2 20.0 - 06/05 MH 40.0 /2017 [facility] HEMATOLOGY Monocytes 7.8 2.0 - 12.0 06/05 [facility] HEMATOLOGY Segs-Bands # 2.9 1.5 - 8.1 06/05 [facility] HEMATOLOGY MPV 9.3 7.4 - 10.4 06/05 [facility] HEMATOLOGY Hct 42.3 36.0 - 06/05 48.0 /2016 [facility] HEMATOLOGY WBC 5.1 3.7 - 10.4 06/05 [facility] HEMATOLOGY Platelet 213 133 - 450 06/05 [facility] HEMATOLOGY RDW 13.6 11.5 - 06/05 14.5 [facility] HEMATOLOGY MCH 31.0 27.0 - 06/05 31.0 /2016 [facility] HEMATOLOGY MCV 89.1 80.0 - 06/05 98.0 /2016 [facility] HEMATOLOGY RBC 4.75 4.20 - 06/05 5.40 /2016 [facility] HEMATOLOGY Hgb 14.7 12.0 - 06/05 16.0 [facility] HEMATOLOGY MCHC 34.8 32.0 - 06/05 36.0 [facility] Pathology Reports No Data Provided for This Section Diagnostic Reports Report Value Date Source Chest 1view DX Patient Name: ELIJAH CHARLES 06/06/2017 [facility] : 1950; Age: 66 years y/o Female MR: [id number] Study: Chest 1view DX dated 06/06/2017. Clinical Indication: COPD Comparison: None Mildly decreased lung volume s. Heart size is normal. Aortic calcification. Mediastinal structures otherwise unremarkable. Mild patchy consolidation both lung bases may be due to atelectasis, pneumonia o r other nonspecific alveolit is. No other focal infiltrates within the lungs, no edema and no pneumothorax. SL: [id number] Consultation Notes No Data Provided for This Section Discharge Summaries No Data Provided for This Section History and Physicals No Data Provided for This Section Vital Signs Vital Sign Value Date Comments Source Systolic (mm Hg) 129 06/08/2017 [facility] t Diastolic (mm Hg) 84 06/08/2017 [facility] Heart Rate 65 06/08/2017 [facility] Respitory Rate 18 06/08/2017 [facility] Temperature Oral (F) 97.3 F 06/08/2017 [facility] Systolic (mm Hg) 142 06/08/2017 [facility] t Diastolic (mm Hg) 82 06/08/2017 [facility] Heart Rate 79 06/08/2017 [facility] Temperature Oral (F) 98.5 F 06/08/2017 [facility] Respitory Rate 18 06/08/2017 [facility] Respitory Rate 20 06/08/2017 [facility] Systolic (mm Hg) 129 06/08/2017 [facility] Diastolic (mm Hg) 79 06/08/2017 [facility] Temperature Oral (F) 98.3 F 06/08/2017 [facility] Heart Rate 91 06/08/2017 [facility] Height 162.56 cm 06/06/2017 [facility] Weight 85.455 06/06/2017 [facility] BMI Calculated 32.34 06/06/2017 [facility] Weight 85.455 06/02/2017 [facility] BMI Calculated 32.34 06/02/2017 [facility] Height 162.56 cm 06/02/2017 [facility] Encounters Location Location Encounter Encounter Reason Attending ADM DC Stat Source Details Type Number For Provider Date Date Visit [facility] Unknown [id number] 02/22 02/22 [facility] [id number] [facility] [id number] [facility] Unknown [id number] 02/22 02/22 [facility] [id number] /2015 [facility] [id number] [facility] Unknown [id number] 04/18 04/18 [facility] [id number] /2015 [facility] [id number] [facility] Inpatient [id number] Nova Boone 06/05 06/08 [facility] Procedures Procedure Code Date Perfomer Comments Source Abdominal [id number] [facility] hysterectomy Hip replacement [id number] [facility] est Procedure on wrist [id number] [facility] Tonsillectomy [id number] [facility] Assessment and Plan Assessment and Plan Date Source Extracted from:Title: Clinical Document 06/08/2017 [facility] Author: Nova Boone MD Date: 06/08/17 Subjective Pt feels well. She has had a BM and is passing flatus. She is hungry. Objective awake, alert, comfortable Abd soft, ND, incisions C/D Vitals Tmp(F) Tmp(C) Ttype B P MAP Pulse RR SpO2 FIO2 ETCO2 06/08 07:31 98.5 36.94 oral 142/82 --- 79 18 97 --- --- 06/08 03:54 98.3 36.83 oral 129/79 --- 91 20 --- --- --- 06/07 23:34 97.6 36.44 oral 143/74 --- 89 20 --- --- --- 06/07 19:33 ---- ---- ---- - ---- --- --- -- 100 --- --- 06/07 19:32 97.8 36.56 oral 145/76 --- 86 20 --- --- --- 24 Hr Tmax: 98.6F (37.00c) at 06/07 12:2 5 Vital Signs are the last 5 in the past 48 hours. 24 Hr Tmin: 97.6F (36.44c) at 06/07 23: 34 Weights are the last 5 in 60 days, plus initial. Date Wt(kg) Wt(lb) Ht(cm) Ht(in) Method BM I BSA 06/06 85.45 188.00 162.56 64.00 Estimated 32.3 1.96 06/02 (initial) 85.45 188.00 Estimated 32 .3 1.96 06/02 162.56 64.00 Stated (no point of care glucose results charted in last 24 hours) Most Recent Scores: 06/08/17 Pain Intensity NRS (0-10) 0 06/08/17 [place] Coma Score 15 06/08/17 Ahmet Score 20 06/08/17 Lewis Gonzales Fall Score 7 Lines, Tubes, and Drains: 06/07/2017 16:00 Peripheral Lines: Hand Left Over the needle catheter 06/05/2017 11:30 Peripheral Lines: Antec ubital Left 20 gauge Over the needle catheter Surgical Procedures: 06/05/17 13:29 CYSTOSCOPY,BILATERAL U RETERAL CATHETER INSERTION BY . LAPAROSCOPIC SIGMOID COLECTOMY,RECTOPEXY. [id number] Primary Surgeon: Nova Boone MD (Service : GEN) I/O Intake Output Balance 06/07/2017 7a-3p 1300.00 1900.00 -600.00 3p-11p 641.00 2250.00 -1609.00 11p-7a 681.67 900.00 -218.33 Totals 2622.67 5050.00 -2427.33 06/06/2017 7a-3p 302.00 0.00 302.00 3p-11p 32.00 1475.00 -1443.00 11p-7a 0.00 1100.00 -1100.00 Totals 334.00 2575.00 -2241.00 (no lab data in past 24 hours) Scheduled Meds (4): 06/05/17 20:00 albuterol-ipratropium (al buterol-ipratropium 2.5-0.5 mg inhalation solution) 3 mL NEB RTID [Last Rescheduled Dt/Tm: 06/05/17 20:00:00 CDT] [eMAR Schedule: (06/08/17) 08:00, 14:00] 06/05/17 21:00 alvimopan (Entereg) 12 mg PO Q12H [Last Rescheduled Dt/Tm: 06/08/17 2:00:00 CDT] [eMAR Schedule: (06/08/17) 02:00, 14:00] 06/06/17 8:00 enoxaparin (Lovenox) 40 mg SUB-Q [id number] [eMAR Schedule: (06/08/17) 08:00] [Future Dose: 06/09/17 08:00] 06/05/17 21:00 pantoprazole (Protonix) 40 mg PO Q24H [Future Dose: 06/08/17 21:00] Unscheduled Meds: None PRN Meds (5): 06/05/17 16:41 acetaminophen 650 mg PO Q4H 06/05/17 16:41 diphenhydrAMINE 25 mg PO Bedtime 06/07/17 14:03 ketOROLAC (ketOROLAC 15 mg/mL injectable solu tion) 15 mg IV Q6H 06/05/17 16:41 ondansetron 4 mg IVP Q6H 06/05/17 16:41 sodium chloride (Saline Flush 0.9%) 10 ml IVP PRN One Time Meds: None Continuous Infusions (1): 06/07/17 14:08 D5NS 1,000 mL 1,000 mL 60 ml/hr Assessment/Plan POD#3 improved. Will advance diet. If tolerates, OK to DC home. FU with me in 2 weeks. Plan of Care No Data Provided for This Section Social History Social History Date Source Social History TypeResponse 06/06/2017 [facility] Substance Abuse Use: None. Alcohol Never Smoking Status Never smoker; Ready to change: No; Lauren rns about tobacco use in household: No; Exposure to Tobacco Smoke None; Cigarette Smoking Last 365 Days No; Reg Smoking Cessation Counseling Yes Social History ElementQualifiersDate Reported 04/11/2016 [facility] Last bone density: . 2012April 11, 2016 Last colonoscopy: . 2012April 11, 2016 last mammogram: . 2012April 11, 2016 Tobacco Use: . Are you a:: never smoker April 11, 2016 Marital Status: . April 11, 2016 Alcohol: yes. 1 Glass wine nightly to help sleep April 11, 2016 Family History No Data Provided for This Section Advance Directives No Data Provided for This Section Functional Status No Data Provided for This Section
--- OUTSIDE RECORDS SUMMARY | 2020-11-26 12:34 | XMS REPORT | Summary of Care ---
:1950 Author Organization [facility] Address [address] [place] [id number] Care Team Providers Name Role Phone Armando Manriquez Primary Care Provider Reason for Referral Radiology Services (Routine) Status Reason Specialty Diagnoses / Referred By Referred To Procedures Contact Contact New Request Diagnostic Diagnoses Pain Sumeet Amezcua Radiology Procedures XR HIPS 2 VW LEFT MD Giuliano [address] [place] [address] [place] [address] Reason for Visit Reason Comments Follow-up Left hip Pain (Routine) Status Reason Specialty Diagnoses / Referred By Referred To Procedures Contact Contact Closed ORT-ORTHOPAEDIC Diagnoses FU / LT Hip Pain s/p LT THR 2012 Sumeet Amezcua Craig SURGERY / Procedures CONSULT/REFERRAL ORTHOPAEDIC SURGERY FOLLOW-UP VISIT MD Giuliano Nobles MD Orthopedic Surgery [address] [place] [phone] Phone: Fax: Encounter Details Date Type Department Care Team Description 11/12/2020 Office Visit [facility] Sumeet Amezcua Lumbar radic ulopathy (Primary Dx); Orthopaedic Surgery- MD Gerri Nobles [address] [place] [phone] Allergies No Known Allergiesdocumented as of this encounter (statuses as of 11/12/2020) Medications Medication Sig Dispensed Refills Start Date End Date Status BACILLUS COAGULANS Take by 0 A ctive (PROBIOTIC, B. mouth. COAGULANS, ORAL) MULTIVITAMINS W/C Take by 0 Ac tive ORAL mouth. PREMARIN 0.625 NASIM 0.5 1 05/20/2016 Acti ve mg/gram cream GRAMS TO VULVAR/VAGI NAL AREA WITH FINGER 3 TIMES PER WEEK UTD. Dexlansoprazole Take by 0 Acti ve (DEXILANT) 60 mg mouth. capsule famotidine (PEPCID) Take 20 mg 0 Active 20 mg tablet by mouth 2 (two) times daily. albuterol sulfate 90 Inhale. 0 Active mcg/actuation aebs acetaminophen-codein TK 1 T PO 0 05/16/2016 11/12/19 2 Discontinued e (TYLENOL #3) Q 4 H PRN 1 (Ther apy 300-30 mg tablet P. com pleted) Nitrofurantoin&Nit. 0 05/18/2016 Discontinued Macrocryst 1 (Therapy (MACROBID) 100 mg co mpleted) capsule omeprazole Take 40 mg 0 Disconti nued (PRILOSEC) 40 mg by mouth 1 (Al ternate capsule daily. therapy) magnesium gluconate Take 27 mg 0 Discontinued 27 mg (500 mg) by mouth 3 1 (Pat ient tablet (three) Reported) times daily. aspirin (ASPIRIN Take 81 mg 0 Di scontinued LOW-STRENGTH) 81 mg by mouth 1 (Therapy chewable tablet daily. comp leted) documented as of this encounter (statuses as of 11/12/2020) Active Problems No known active problemsdocumented as of this encounter (statuses as of 11/12/2020) Social History Tobacco Use Types Packs/Day Years Used Date Former Smoker Smokeless Tobacco: Never Used Alcohol Use Drinks/Week oz/Week Comments No 0 Standard drinks or equivalent 0.0 Sex Assigned at Date Recorded Not on file COVID-19 Exposure Response Date Recorded In the last month, have you been in contact with No / Unsure 11/12/2020 12:44 PM [employer]LINDR[employer]ER someone who was confirmed or suspected to have Coronavirus / COVID-19? documented as of this encounter Last Filed Vital Signs Vital Sign Reading Time Taken Comments Blood Pressure 118/73 11/12/2020 12:56 PM [employer] Pulse 74 11/12/2020 12:56 PM [employer]LIN[employer] Temperature - - Respiratory Rate 18 11/12/2020 12:56 PM [employer]LINDR[employer] Oxygen Saturation - - Inhaled Oxygen Concentration - - Weight 86.2 kg (190 lb) 11/12/2020 12:56 PM [employer]LIN[employer] Height 165.1 cm (5' 5") 11/12/2020 12:56 PM [employer]LINDR[employer] Body Mass Index 31.62 11/12/2020 12:56 PM [employer]LI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 encounter Progress Notes Leonie Dougherty, JOHANNE - 11/12/2020 1:00 PM CST Cc: Chief Complaint Patient presents with Follow-up Left hip Pain PMH THR around 2014. In clinic today with complaints of left hip pain that gets worse with ambulation. Mechanism of injury unknown. DOI no none injury reported. Nessa Gaona is a 70 year old female. Hip Pain The incident occurred more than 1 week ago. The incident occurred at home. There was no injury mechanism. The pain is present in the left hip, left thigh and left leg. The quality of the pain is described as aching, cramping and burning. The pain is at a severity of 5/10. The pain has been worsening since onset. Associated symptoms include an inability to bear weight and numbness. The symptoms are aggravated by movement and weight bearing. She has tried non-weight bearing, rest and elevation for thesymptoms. The treatment provided no relief. Allergies Nessa has No Known Allergies. Medications Outpatient Medications Prior to Visit Medication Sig Dispense Refill albuterol sulfate 90 mcg/actuation aebs Inhale. Dexlansoprazole (DEXILANT) 60 mg capsule Take by mouth. famotidine (PEPCID) 20 mg tablet Take 20 mg by mouth 2 (two) times daily. PREMARIN 0.625 mg/gram cream NASIM 0.5 GRAMS TO VULVAR/VAGINAL AREA WITH FINGER 3 TIMES PER WEEK UTD. 1 BACILLUS COAGULANS (PROBIOTIC, B. COAGULANS, ORAL) Take by mouth. MULTIVITAMINS W/C ORAL Take by mouth. acetaminophen-codeine (TYLENOL #3) 300-30 mg tablet TK 1 T PO Q 4 H PRN P. 0 aspirin (ASPIRIN LOW-STRENGTH) 81 mg chewable tablet Take 81 mg by mouth daily. magnesium gluconate 27 mg (500 mg) tablet Take 27 mg by mouth 3 (three) times daily. Nitrofurantoin&Nit. Macrocryst (MACROBID) 100 mg capsule omeprazole (PRILOSEC) 40 mg capsule Take 40 mg by mouth daily. No facility-administered medications prior to visit. Histories Past Medical History: Diagnosis Date Esophageal reflux Osteoporosis Prolapse of vaginal wall UTI (lower urinary tract infection) Past Surgical History: Procedure Laterality Date FRACTURE SURGERY Right orif HYSTERECTOMY JOINT SURGERY Left ORAL SURGERY PROCEDURE Social History Socioeconomic History Marital status: Spouse name: Not on file Number of children: Not on file Years of education: Not on file Highest education level: Not on file Occupational History Not on file Social Needs Financial resource strain: Not on file Food insecurity Worry: Not on file Inability: Not on file Transportation needs Medical: Not on file Non-medical: Not on file Tobacco Use Smoking status: Former Smoker Smokeless tobacco: Never Used Substance and Sexual Activity Alcohol use: No Alcohol/week: 0.0 standard drinks Drug use: No Sexual activity: Never Lifestyle Physical activity Days per week: Not on file Minutes per session: Not on file Stress: Not on file Relationships Social connections Talks on phone: Not on file Gets together: Not on file Attends jainism service: Not on file Active member of club or organization: Not on file Attends meetings of clubs or organizations: Not on file Relationship status: Not on file Intimate partner violence Fear of current or ex partner: Not on file Emotionally abused: Not on file Physically abused: Not on file Forced sexual activity: Not on file Other Topics Concern Not on file Social History Narrative Not on file Family History Problem Relation Age of Onset Cancer Mother Afib (atrial fibrillation) Mother Hypertension Mother Arthritis Mother Review of Systems Constitutional: Negative. HENT: Negative. Eyes: Negative. Respiratory: Negative. Breasts: Negative. Cardiovascular: Negative. Gastrointestinal: Negative. Genitourinary: Negative. Musculoskeletal: Positive for joint swelling. Skin: Negative. Neurological: Positive for numbness. Psychiatric/Behavioral: Negative. Endocrine: Endocrine negative Vital Signs BP 118/73 (BP Location: Left arm, Patient Position: Sitting, BP CUFF SIZE: Adult Large) | Pulse 74| Resp 18 | Ht 65" (165.1 cm) | Wt 86.2 kg (190 lb) | BMI 31.62 kg/m Physical Exam Musculoskeletal: Lumbar back: She exhibits pain and spasm. Legs: Comments: General: Well-developed well-nourished oriented to person place and time HEENT normocephalic atraumatic atraumatic pupils equal round reactive to light extraocular muscles intact Cervical thoracic and lumbar spine without focal deficit normal kyphosis and lordosis Chest clear to auscultation and percussion Cardiovascular regular rate and rhythm without gallop rub or murmur soft without organomegaly Normal bowel sounds Neurologic: Focal myotome or dermatomal deficits Vascular: Intact symmetrical bilateral upper and lower extremities Skin without stasis varicosities or breakdown Extremities without cyanosis clubbing or edema Lymphatics no peripheral lymphedema Psych normal mood and affect. Neurovascular function is intact. To include brisk capillary refill warm pink skin active motor function and sensory function intact. Assessment/Plan Lumbar Radiculopathy MRI of the L-Spine. Radiating pain suggest there is a nerve being compressed. Follow up within ten days to discuss results and treatment options. 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 encounter Plan of Treatment Health Maintenance Due Date Last Done Comments HEPATITIS C (HCV) SCREEN 1950 Depression Screening 1961 DTaP,Tdap,and Td Vaccines (1 - Tdap) 1968 Breast Cancer Screening (MAMMOGRAM) 1989 COLON CANCER SCREENING ANNUAL FIT/FOBT 1999 COLON CANCER SCREENING FIT DNA EVERY 3 YEARS 1999 COLON CANCER SCREENING SIGMOIDOSCOPY EVERY 5 YEARS 1999 COLONOSCOPY 1999 Colorectal Cancer Screening 1999 Zoster Recombinant Vaccine (SHINGRIX) (1 of 2) 1999 LUNG CANCER SCREEN: Recommended for age 55-80 with 30 + 09/30/20 04 pack year history Medicare Wellness Visit 2014 Osteoporosis Screening 2014 PNEUMOCOCCAL VACCINES 65+ (1 of 1 - PPSV23) 2014 INFLUENZA VACCINE (#1) 2020 documented as of this encounter Results XR HIPS 2 VW LEFT (11/12/2020 1:07 PM CYLINDRICAL MIXER) Specimen Narrative Performed At This result has an attachment that is no t available. Implant in good position, no signs of loosening or subsidence or otherwise PACS failure prosthesis. Interval between implants is excel lent with no evidence of wear. Performing Organization Address City/State/Zipcode Phone Number PACS documented in this encounter Visit Diagnoses Diagnosis Lumbar radiculopathy - Primary Thoracic or lumbosacral neuritis or radi culitis, unspecified Pain Generalized pain documented in this encounter Insurance Payer Benefit Plan / Subscriber ID Effective Phone Address T ype Group Dates MEDICARE MEDICARE PART [id number] 2014-Pre [phone] Medicare A & B sent [phone] [place] [phone] COMMERCIAL COMMERCIAL [id number] 2019-Pres HMO /PPO/POS NON-CONTRACT NON-CONTRACT ent GENERIC GENERIC documented as of this encounter
--- OUTSIDE RECORDS SUMMARY | 2020-11-26 12:34 | XMS REPORT | Summary of Care ---
:1950 Author Organization [facility] Health Address [address] [place] [address] Care Team Providers Name Role Phone Declan Armando Sue Primary Care Provider Encounter Details Date Type Department Care Team Description 11/24/2020 Orders Only [facility] Doctor Unassigned, No [address] [facility] Name [place] [id number] [address] [place] [phone] Allergies No Known Allergiesdocumented as of this encounter (statuses as of 11/24/2020) Medications Medication Sig Dispensed Refills Start Date End Date Status BACILLUS COAGULANS Take by mouth. 0 Active (PROBIOTIC, B. COAGULANS, ORAL) MULTIVITAMINS W/C ORAL Take by mouth. 0 Active PREMARIN 0.625 mg/gram NASIM 0.5 GRAMS 1 05/20/2016 Active cream TO VULVAR/VAGINAL AREA WITH FINGER 3 TIMES PER WEEK UTD. Dexlansoprazole Take by mouth. 0 Active (DEXILANT) 60 mg capsule famotidine (PEPCID) 20 mg Take 20 mg by 0 Active tablet mouth 2 (two) times daily. albuterol sulfate 90 Inhale. 0 Active mcg/actuation aebs documented as of this encounter (statuses as of 11/24/2020) Active Problems No known active problemsdocumented as of this encounter (statuses as of 11/24/2020) Social History Tobacco Use Types Packs/Day Years Used Date Former Smoker Smokeless Tobacco: Never Used Alcohol Use Drinks/Week oz/Week Comments No 0 Standard drinks or equivalent 0.0 Sex Assigned at Date Recorded Not on file COVID-19 Exposure Response Date Recorded In the last month, have you been in contact with No / Unsure 11/12/2020 12:44 PM [employer] someone who was confirmed or suspected to have Coronavirus / COVID-19? documented as of this encounter Last Filed Vital Signs Not on filedocumented in this encounter Plan of Treatment Date Type Specialty Care Team Description 12/01/2020 Appointment Radiology Sumeet Amezcua MD [address] [place] [phone] Health Maintenance Due Date Last Done Comments HEPATITIS C (HCV) SCREEN 1950 Depression Screening 1961 SARS-CoV-2 (COVID-19) Vaccine (1 of 2) 1965 DTaP,Tdap,and Td Vaccines (1 - Tdap) 1968 [...] (#1) 2020 documented as of this encounter Procedures Procedure Name Priority Date/Time Associated Diagnosis Comme nts REFERRAL- Routine 11/24/2020 12:01 AM [employer] REQUEST/RESPONSE documented in this encounter Results Not on filedocumented in this encounter Insurance Payer Benefit Plan / Subscriber ID Effective Phone Address T ype Group Dates MEDICARE MEDICARE PART [id number] 2014-Pre [phone] Medicare A & B sent [phone] [place] [id number] COMMERCIAL COMMERCIAL [id number] 2019-Pres HMO /PPO/POS NON-CONTRACT NON-CONTRACT ent GENERIC GENERIC documented as of this encounter
--- OUTSIDE RECORDS SUMMARY | 2020-11-26 12:34 | XMS REPORT | Continuity of Care Document ---
:1950 Author Organization [facility] t Address [address] [place] [address] Care Team Providers Name Role Phone Doctor Unassigned, Name Attending Clinician Unavailable Goldie ABDUL, L Attending Clinician Ashley Boone Attending Clinician Ashley Boone Admitting Clinician Problems Condition Condition Condition Status Onset Resolution Last Treating Co mments Source Name Details Category Date Date Treatment Clinician Date LAPAROSCOP Diagnosis Active 2017-06-14 Memoria IC SIGMOID 8-04 22:00:00 l COLECTOMY 00:00: Naldo LAPAROSCOP 00 IC SIGMOID COLECTOMY Active 05/26/2017 [facility] Vaginal Problem Active 2016-04-19 Dmitri duy vault 02:29:04 l prolapse Vaginal Lisy nn vault prolapse Active Problem 04/19/2016 [facility] Yeast Problem Active 2016-04-19 Memor ia vaginitis 02:29:04 l Yeast Naldo vaginitis Active Problem 04/19/2016 [facility] Gastroesop Problem Active 2017-06-11 M emoria hageal 00:55:05 l reflux Lotus disease Gastroesop (disorder) hageal reflux disease (disorder) Active Problem 06/11/2017 [facility] Pulmonary Problem Active 2017-06-11 Me moria emphysema 00:55:05 l (disorder) Ramirez n Pulmonary emphysema (disorder) Active Problem 06/11/2017 [facility] CHOLECYSTI Diagnosis Active 2017-06-14 Memoria TIS, 22:00:00 l UNSPECIFIE Ramirez n D CHOLECYSTI TIS, UNSPECIFIE D Active [facility] Allergies, Adverse Reactions, Alerts This patient has no known allergies or adverse reactions. Social History Social Habit Start Date Stop Date Quantity Comments Source Social History 2017-06-06 2017-06-06 [facility] ermann 05:18:41 05:18:41 Lastbonedensity: 2016-04-11 2016-04-11 [facility] Naldo 00:00:00 00:00:00 Medications Ordered Filled Start Stop Current Ordering Indication Dosage Frequency Signature Comments Components Source Medication Medication Date Date Medication? Clinician (SIG) Name Name Acetaminoph Yes 1 tab, PO, Memoria en 300 MG / 06-08 Q4H, PRN l Codeine 19:50: Pain Score Herm shiv Phosphate 00 4-6, # 60 30 MG Oral tab, 0 Tablet Refill(s) [Tylenol with Codeine #3] Acetaminoph No Notes: Do M emoria en 300 MG / 17 not exceed l Codeine 13:56: 4gm/day of Herm shiv Phosphate 00 acetaminop 30 MG Oral hen. Tablet (Same as: [Tylenol Tylenol with with Codeine #3] Codeine # 3) D5NS 1,000 No 1,000 mL, Me moria mL -16 Rate: 20 l 19:08: ml/hr, Naldo 00 Infuse over: 50 hr, Route: IV, Dosing Weight 85.455 kg, Total Volume: 1,000, Start date: 06/07/17 14:08:00 CDT, Stop date: 07/07/17 14:07:00 CDT LVP No 1,000 mL, Memoria solution 8-16 Rate: 100 l with 19:05: ml/hr, Naldo potassium 00 Infuse 1000 mL over: 10 hr, Route: IV, Dosing Weight 85.455 kg, Total Volume: 1,000, Start date: 06/07/17 14:05:00 CDT, Duration: 30 day, Stop date: 07/07/17 14:04:00 CDT ketOROLAC No 4 days. Dmitri duy 15 mg/mL 8-16 l injectable 19:03: Naldo solution 00 Milk of No Notes: Memoria Magnesia 8-15 (Same as: l 22:52: Milk of Naldo 00 Magnesia, MOM) Omeprazole No 40 mg, Memor ia 8-15 Route: PO, l 14:00: Daily, Dosing Weight 85.455, kg, Start date: 06/06/17 9:00:00 CDT, Duration: 30 day, Stop date: 07/05/17 9:00:00 CDT Lovenox No Notes: Memoria 8-15 (Same as: l 13:00: Lovenox) Naldo 00 Entereg No Notes: Memoria 8-15 Same as: l 02:00: Entereg Maximum of 15 doses Alert Restricted medication Alvimopan (Entergen) order form must be completed prior to dispensing . Protonix No Notes: Memoria 8-15 Tablet l 02:00: should not be chewed or crushed. (Same as: Protonix) Albuterol No Notes: Memori a 0.833 MG/ML 06-06 (Same as: l 01:00: Duoneb) Ipratropium 00 Chapin 0.167 MG/ML Inhalant Solution Enoxaparin No 40 mg, Memor ia -14 Route: l 22:00: SUB-Q, Drug form: INJ, [id number], Dosing Weight 85.455, kg, Start date: 06/05/17 17:00:00 CDT, Duration: 30 day, Stop date: 07/04/17 17:00:00 CDT Morphine No Notes: Memoria -14 Dose: l 22:00: Delay: Basal rate: 4hr limit: (Same as:González lozoya) Ondansetron No Notes: Dmitri duy 14 (Same as: l 21:54: Zofran) MEDICATION WASTE Product Size: 4 mg Product Wasted: ___ mg Fentanyl No Notes: Memoria -14 (Same as: l 21:54: Sublimaze) Preservat april free. Naloxone No Notes: Memoria 8-14 Same as l 21:54: Narcan Flumazenil No Notes: Memor ia 06-05 (Same as: l 21:54: Romazicon) Morphine No Notes: Memoria 06-05 (Same l 21:54: as:MORPhin e Sulfate) Acetaminoph No Notes: Max Memoria en 06-05 acetaminop l 21:54: hen 4000 Lotus 00 mg/day (4 gm/day). (Same as: Tylenol Extra Strength) Naloxone No Notes: Memoria 06-05 Same as l 21:41: Narcan Lotus 00 Saline No Notes: Memoria Flush 0.9% 06-05 (Same as: l 21:41: BD Posiflush) D5W 1/2NS + No Notes: Dmitri duy KCL 20mEq/L 06-05 PREMIX IV l 1000ml 21:41: - Do Not Naldo (Premix) 00 Alter 1,000 mL WASTE: F/P - Sink; E - Municipal Trash Bin Ondansetron No Notes: Dmitri duy 06-05 (Same as: l 21:41: Zofran) MEDICATION WASTE Product Size: 4 mg Product Wasted: ___ mg Diphenhydra No Notes: Dmitri duy mine 06-05 (Same as: l 21:41: Benadryl) Acetaminoph No Notes: Do M emoria en 06-05 not exceed l 21:41: 4 gm/day. (Same as: Tylenol) neostigmine No Route: IV, Memoria (ANES) 06-05 Drug form: l 21:36: INJ, ONCE, Naldo 00 Stop date: 06/05/17 16:36:00 CDT glycopyrrol No Route: IV, Memoria ate (ANES) 06-05 Drug form: l 21:36: INJ, ONCE, Naldo Stop date: 06/05/17 16:36:00 CDT morphine No Route: IV, Mem oria Sulfate 06-05 Drug form: l (ANES) 21:10: INJ, ONCE, Lisy Stop date: 06/05/17 16:10:00 CDT ertapenem No Route: IV, Me moria (ANES) 06-05 Drug form: l 19:29: INJ, ONCE, Stop date: 06/05/17 14:29:00 CDT glycopyrrol No Route: IV, Memoria ate (ANES) 06-05 Drug form: l 19:04: INJ, ONCE, Lotus 00 Stop date: 06/05/17 14:04:00 CDT dexamethaso No Route: IV, Memoria ne (ANES) 06-05 Drug form: l 19:04: INJ, ONCE, Lotus 00 Stop date: 06/05/17 14:04:00 CDT phenylephri No Route: IV, Memoria ne (ANES) 06-05 Drug form: l 19:04: INJ, ONCE, Stop date: 06/05/17 14:04:00 CDT rocuronium No Route: IV, M emoria (ANES) 06-05 Drug form: l 19:04: INJ, ONCE, Stop date: 06/05/17 14:04:00 CDT propofol No Route: IV, Mem oria (ANES) 06-05 Drug form: l 19:04: INJ, ONCE, Stop date: 06/05/17 14:04:00 CDT fentaNYL No Route: IV, Mem oria (ANES) 06-05 Drug form: l 19:04: INJ, ONCE, Stop date: 06/05/17 14:04:00 CDT midazolam No Route: IV, Me moria (ANES) 06-05 Drug form: l 19:04: SOLN, Naldo 00 ONCE, Stop date: 06/05/17 14:04:00 CDT ondansetron No Route: IV, Memoria (ANES) 06-05 Drug form: l 19:04: INJ, ONCE, Anldo 00 Stop date: 06/05/17 14:04:00 CDT lidocaine No Route: IV, Me moria (ANES) 06-05 Drug form: l 19:04: INJ, ONCE, Lotus 00 Stop date: 06/05/17 14:04:00 CDT Isolyte S 2017-0 No Route: IV, Me moria (PH 7.4) 8-14 Total l 1000 mL 17:58: Volume: Lotus (ANES) 00 1,000, Start date: 06/05/17 12:58:00 CDT, Stop date: 06/05/17 13:58:00 CDT Omeprazole 2017-0 Yes PO, Daily, M emoria 8-14 0 l 17:51: Refill(s) Lotus 00 multivitami 2017-0 Yes Daily, 0 Me moria n 8-14 Refill(s) l 17:46: Naldo 00 gabapentin 2017-0 Yes PO, 0 Memori a 8-14 Refill(s) l 17:46: Naldo Probiotic 2017-0 Yes 1 cap, PO, Me moria Formula 8-14 Daily, 0 l 17:46: Refill(s) Acetaminoph 2017-0 No 1,000 mg, M emoria en 14 Route: PO, l 17:00: ONCALL, Naldo 00 Dosing Weight 85.455, kg, Start date: 06/05/17 12:00:00 CDT, Duration: 30 day, Stop date: 07/05/17 11:59:00 CDT Celebrex 2017-0 No 200 mg, Memori a 814 Route: PO, l 17:00: Drug form: Naldo 00 CAP, ONCALL, Dosing Weight 85.455, kg, Start date: 06/05/17 12:00:00 CDT, Duration: 30 day, Stop date: 07/05/17 11:59:00 CDT gabapentin 2017-0 No 600 mg, 1 Me moria 600 MG Oral 8-14 tab, l Tablet 17:00: Route: PO, Lisy nn 00 ONCALL, Dosing Weight 85.455, kg, Start date: 06/05/17 12:00:00 CDT, Duration: 30 day, Stop date: 07/05/17 11:59:00 CDT Calcium 2017-0 No 1,000 mL, Memor ia Chloride 14 Rate: 25 l 0.0014 16:27: ml/hr, Naldo MEQ/ML / 00 Infuse Potassium over: 40 Chloride hr, Route: 0.004 IV, Dosing MEQ/ML / Weight Sodium 85.455 kg, Chloride Total 0.103 Volume: MEQ/ML / 1,000, Sodium Start Lactate date: 0.028 06/05/17 MEQ/ML 11:27:00 Injectable CDT, Solution Duration: 30 day, Stop date: 07/05/17 11:26:00 CDT Entereg No Notes: Memoria 8-14 Same as: l 12:38: Entereg Naldo 00 Maximum of 15 doses Alert Restricted medication Alvimopan (Entergen) order form must be completed prior to dispensing . INVanz + No Notes: Memoria sodium 8-14 (Same as: l chloride 12:36: INVanz) Ramirez n 0.9% INJ 00 Refrigerat 100 mL e. NOT COMPATIBLE WITH D5W. Stable in refrigerat or for 24 hours MEDICATION WASTE Product Size: 1000 mg Product Wasted: ___ mg Vital Signs Vital Name Observation Time Observation Value Comments Source Systolic (mm Hg) 2017-06-08 16:52:00 Dmitri rial Lotus Diastolic (mm Hg) 2017-06-08 16:52:00 Mem orial Lotus Heart Rate 2017-06-08 16:52:00 [facility] Lotus Respitory Rate 2017-06-08 16:52:00 Memori al Naldo Temperature Oral (F) 2017-06-08 16:52:00 97.3 F [facility] Naldo Systolic (mm Hg) 2017-06-08 12:31:00 Dmitri rial Lotus Diastolic (mm Hg) 2017-06-08 12:31:00 Mem orial Lotus Heart Rate 2017-06-08 12:31:00 [facility] Naldo Temperature Oral (F) 2017-06-08 12:31:00 98.5 F [facility] Naldo Respitory Rate 2017-06-08 12:31:00 Memori al Naldo Respitory Rate 2017-06-08 08:54:00 Memori al Lotus Systolic (mm Hg) 2017-06-08 08:54:00 Dmitri rial Naldo Diastolic (mm Hg) 2017-06-08 08:54:00 Mem orial Naldo Temperature Oral (F) 2017-06-08 08:54:00 98.3 F [facility] Naldo Heart Rate 2017-06-08 08:54:00 [facility] Naldo Height 2017-06-06 14:00:00 162.56 cm [facility] Naldo Weight 2017-06-06 14:00:00 [facility] Naldo BMI Calculated 2017-06-06 14:00:00 David Henaoann Weight 2017-06-02 14:06:00 [facility] Lotus BMI Calculated 2017-06-02 14:06:00 David Henaoann Height 2017-06-02 14:06:00 162.56 cm [facility] Naldo Procedures Procedure Date / Time Performed Performing Clinician Gracy nagy Abdominal hysterectomy [facility] Naldo Hip replacement [facility] Naldo Procedure on wrist [facility] shiv Tonsillectomy [facility] Encounters Start End Encounter Admission Attending Care Care Encounter Source Date/Time Date/Time Type Type Clinicians Facility Department ID 2020-11-24 2020-11-24 Orders Doctor TRISTEN [id number] 00:00:00 00:00:00 Only Unassigned, GISSELLE [id number] [place] [facility] [id number] [facility] 2020-11-12 2020-11-12 [facility] [id number] 13:07:31 23:59:00 Encounter Sumeet Nobles [employer] [id number] Surgical [id number] Specialti [id number] es 809 [place] 2020-11-12 2020-11-12 Office [facility] [id number] 12:45:28 13:36:58 Visit Sumeet Nobles [employer] [id number] Surgical [id number] Specialti [id number] es 198 [place] 2020-11-12 2020-11-12 Telephone [facility] [id number] 00:00:00 00:00:00 Sumeet Nobles [employer] [id number] Surgical [id number] Specialti [id number] es 198 [place] 2017-06-05 2017-06-08 Outpatient Nova Boone [facility] [id number] 10:48:00 17:13:00 2016-04-18 2016-04-18 Outpatient [facility] Irina [id number] [facility] 13:00:00 13:00:00 [facility] 2016-02-23 2016-02-23 Outpatient Irina Arevalo [id number] [facility] 14:38:00 14:38:00 [facility] Results Test Description Test Time Test Comments Results Result Comments Source ELECTROLYTES 2017-06-07 13.3 [facility] Her lindsay 11:19:00 ELECTROLYTES 2017-06-07 77 [facility] lindsay 11:19:00 ELECTROLYTES 2017-06-07 0.80 [facility] lindsay 11:19:00 ELECTROLYTES 2017-06-07 8.6 [facility] lindsay 11:19:00 ELECTROLYTES 2017-06-07 103 [facility] lindsay 11:19:00 ELECTROLYTES 2017-06-07 5 [facility] Her lindsay 11:19:00 ELECTROLYTES 2017-06-07 23 [facility] Her lindsay 11:19:00 ELECTROLYTES 2017-06-07 98 [facility] Her lindsay 11:19:00 ELECTROLYTES 2017-06-07 130 [facility] Her lindsay 11:19:00 ELECTROLYTES 2017-06-07 4.3 [facility] Her lindsay 11:19:00 HEMATOLOGY 2017-06-07 8.8 Memorial Lisy nn 11:19:00 HEMATOLOGY 2017-06-07 204 [facility] Lisy nn 11:19:00 HEMATOLOGY 2017-06-07 13.6 Memorial Lisy nn 11:19:00 HEMATOLOGY 2017-06-07 34.0 Memorial Lisy nn 11:19:00 HEMATOLOGY 2017-06-07 91.1 Memorial Lisy nn 11:19:00 HEMATOLOGY 2017-06-07 11:19:00 Test Item Value Reference Range Interpretation Comme nts MCH (test code = MCH) 30.9 pg 27.0-31.0 [facility] RuhcphtDYIYEASKXD7304-01-22 11:19:004.57[facility] HermannHEMATOLOGY 2017-06-07 11:19:0014.2[facility] XhxzstbSPQRPFNHUT9316-62-34 11:19:0041.7[facility] AjgctlhVFSOJKIEIU3757-66-43 11:19:008.7[facility] QbngpbzCBKBVLARLA4771-64-45 11:19:000.2[facility] CoksbddHXHQZJHAPC2871-19-83 11:19:001.6[facility] Lotus GCQYQBCCXI4211-72-68 11:19:006.4[facility] OtppawbARHGTSJWJV4529-95-20 11:19:000.1 [facility] KqllqdfHHUHWYFFJA6933-13-24 11:19:000.6[facility] HermannHEMATOLOGY 2017-06-07 11:19:0018.7[facility] TmqszyvXEQCNTQVHL7744-59-23 11:19:000.9[facility] JiguyrqGVBNTRRWQA2889-72-19 11:19:007.2[facility] AzzplijQWNLAJPHOP7617-30-86 11:19:0073.0[facility] HermannCHEM WWLHT1163-51-96 11:07:002.2[facility] HermannCHEM FBVHV7814-70-28 11:07:002.6[facility] HermannCHEM ANJWJ5954-39-44 11:07:000.90 [facility] HermannCHEM ZMYYG7283-41-55 11:07:62268Zbcyjfcl HermannCHEM PANEL 2017-06-06 11:07:0024[facility] HermannCHEM NBJJI9631-77-97 11:07:0011.1[facility] HermannCHEM KDUCE3285-52-96 11:07:38286Iymfdvnq HermannCHEM UAVIV2408-17-75 11:07:008.7[facility] HermannCHEM PJUKO7475-43-59 11:07:0066[facility] HermannCHEM ITZUS6425-73-45 11:07:004.1[facility] HermannCHEM THCPE0184-12-90 11:07:009 [facility] HermannCHEM MAMWZ6115-52-00 11:07:71576Mbaedipv HermannHEMATOLOGY 2017-06-06 11:07:000.9[facility] WftmdbtATZYCRTVXW7930-99-72 11:07:001.4[facility] UxdxzymQHEDNZMOJJ2418-71-44 11:07:008.9[facility] NbvnnrnQNWNBTRCIE3159-72-13 11:07:007.8[facility] LgzjmzuZHVKKUSZIC3560-43-83 11:07:0012.3[facility] Naldo CLOQHBCLNL2291-53-67 11:07:000.1[facility] DnwmgxbADPRODLYBQ8985-13-09 11:07:000.3 [facility] EnwqqthKYPXFLWYKH9552-66-25 11:07:0079.5[facility] HermannHEMATOLOGY 2017-06-06 11:07:0014.5[facility] NeshxexYMWLHKJHAS7853-58-40 11:07:0011.2[facility] DzhpehcIOMYGBELUB5427-17-09 11:07:004.67[facility] SxswzqfMHPMORWYSR7220-22-61 11:07:0034.2[facility] DhsaitoPBIJQMZBKI6712-39-06 11:07:0014.0[facility] Lotus VOWASVYJGS1600-57-24 11:07:009.2[facility] YdogxngVOVHEDZDYG9250-86-92 11:07:19513 [facility] JqikkteXLVQWZDTWK4578-59-98 11:07:0042.4[facility] HermannHEMATOLOGY 2017-06-06 11:07:00 Test Item Value Reference Range Interpretation Comments MCH (test code = MCH) 31.1 pg 27.0-31.0 [facility] MbnvnsrRPSMDGELVH9221-74-91 11:07:0090.8[facility] HermannBLOOD BANK QAPGTWK3650-16-94 16:29:00Negative (06/05/17 11:29 AM)[facility] Naldo ZZNYGJAZRHUD0161-56-65 16:29:0010.6[facility] ZaquqflKJYLAYYEAVNR9832-19-08 16:29:0058[facility] FbsmwpdJZUXTYMVDPND7036-98-23 16:29:0093[facility] Naldo GJDLHAYTKOEF2149-79-24 16:29:0012[facility] BngwtssXGRKVECBHHXB3235-05-40 16:29:00 1.00[facility] KgjelalIJANCATYAURX1683-36-90 16:29:0027[facility] Naldo GHVYMHAAVBWE3346-76-32 16:29:009.3[facility] BlydgasHJRVCTKXJYJM2234-82-34 16:29:65025Fbiprzdv RcscsojERCWJYSXNACN7365-53-18 16:29:23671Lniktpat Naldo QCFWCULRKAVN8323-16-30 16:29:003.6[facility] BcbshjqUWJNLMXHCG3848-61-39 16:29:00 1.06[facility] NgwexrcIPJRZQABHV0704-45-35 16:29:00 Test Item Value Reference Range Interpretation Comments PT (test code = PT) 14.0 s 12.0-14.7 [facility] UarbbjbRGNRUVNYSW7088-78-46 16:29:00 Test Item Value Reference Range Interpretation Comments PTT (test code = PTT) 34.8 s 22.9-35.8 [facility] RlzmpriIRAMWNNULR9591-64-32 16:29:000.0[facility] HermannHEMATOLOGY 2017-06-05 16:29:000.1[facility] QauverlHURDESZVGL8986-32-77 16:29:001.6[facility] IuikmsqHNEYZCWNIF7602-68-78 16:29:000.4[facility] HitixuwWFXSGKERFP1828-60-98 16:29:000.6[facility] BqjzamqAHRRIJKUZA9515-15-68 16:29:002.5[facility] Naldo UIPOFOTSFH2058-28-99 16:29:0056.9[facility] JbkymszLWIMSIBJAH5574-68-82 16:29:00 32.2[facility] IwbvkazGYDLDPZRRR9515-43-17 16:29:007.8[facility] HermannHEMATOLOGY 2017-06-05 16:29:002.9[facility] IvhywozXFOQZPDUKZ9420-27-40 16:29:009.3[facility] KoachzzSQYMSDCHVD5408-01-28 16:29:0042.3[facility] RnoiyihULJXWTTCOU7563-27-25 16:29:005.1[facility] RdmfgjvNMHCTLYVEY0106-10-63 16:29:62813Zeqmlsyv Naldo GUCPXUTKQV0842-29-06 16:29:0013.6[facility] WtajqhyBHSWDQZEUN8417-71-15 16:29:00 Test Item Value Reference Range Interpretation Comments MCH (test code = MCH) 31.0 pg 27.0-31.0 [facility] IslbsliGPRLKVQXDH2968-49-86 16:29:0089.1[facility] HermannHEMATOLOGY 2017-06-05 16:29:004.75[facility] UmamdmyWNFDKFQTUK8061-84-12 16:29:0014.7[facility] AcxvtwyMAUTMTRHGA1424-28-79 16:29:0034.8[facility] Naldo
--- OUTSIDE RECORDS SUMMARY | 2020-11-26 12:34 | XMS REPORT | Summary of Care ---
:1950 Author Organization [facility] Address [address] [place] [address] Care Team Providers Name Role Phone Armando Manriquez Primary Care Provider Reason for Referral MRI/CAT Scan (Routine) Status Reason Specialty Diagnoses / Referred By Referred To Procedures Contact Contact New Request Diagnostic Diagnoses Lumbar radiculopathy Sumeet Amezcua Radiology Procedures MR LUMBAR SPINE WO JOS Nobles MD [address] [place] [address] Reason for Visit Reason Comments Orders Encounter Details Date Type Department Care Team Description 11/12/2020 Telephone [facility] Orthopaedic Sumeet Amezcua MD Orders Surgery- [place] [address] [facility] [address] [place] [address] [address] [place] [address] Allergies No Known Allergiesdocumented as of [...] with No / Unsure 11/12/2020 12:44 PM 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 documented as of this encounter Last Filed Vital Signs Not on filedocumented in this encounter Plan of Treatment Name Type Priority Associated Diagnoses Order S chedule MR LUMBAR SPINE WO IMAGING Routine Lumbar radiculopathy 1 Occurrences starting CONTRAST 11/12/2020 unti l 11/12/2021 Health Maintenance Due Date Last Done Comments [...] 2020 documented as of this encounter Results Not on filedocumented in this encounter Visit Diagnoses Diagnosis Lumbar radiculopathy - Primary Thoracic or lumbosacral neuritis or radi culitis, unspecified documented in this encounter Insurance Payer Benefit Plan / Subscriber ID Effective Phone Address T e Group Dates MEDICARE MEDICARE PART [id number] 2014-Pre [phone] Medicare A & B sent [id number] [place] [id number] COMMERCIAL COMMERCIAL [id number] 2019-Pres HMO /PPO/POS NON-CONTRACT NON-CONTRACT ent GENERIC GENERIC documented as of this encounter
--- OUTSIDE RECORDS SUMMARY | 2020-11-26 12:34 | XMS REPORT | Summary of Care ---
:1950 Author Organization [facility] Address [address] [place] [address] Care Team Providers Name Role Phone Armando Manriquez Primary Care Provider Reason for Visit Radiology Services (Routine) Status Reason Specialty Diagnoses / Referred By Referred To Procedures Contact Contact New Request Diagnostic Diagnoses Pain Sumeet Amezcua Radiology Procedures XR HIPS 2 LEFT MD Giuliano [address] [place] [phone] Encounter Details Date Type Department Care Team Description 11/12/2020 Hospital En[facility] [address] [facility] [address] [place] [phone] Allergies No Known Allergiesdocumented as of this encounter (statuses as of 11/13/2020) Medications Medication Sig Dispensed Refills Start Date [...] as of this encounter (statuses as of 11/13/2020) Active Problems No known active problemsdocumented as of this encounter (statuses as of 11/13/2020) Social History Tobacco Use Types Packs/Day Years Used Date Former Smoker Smokeless Tobacco: Never Used Alcohol Use Drinks/Week oz/Week Comments No 0 Standard drinks or equivalent 0.0 Sex Assigned at Date Recorded Not on file COVID-19 Exposure Response Date Recorded In the last month, have you been in contact with No / Unsure 11/12/2020 12:44 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 documented as of this encounter Last Filed Vital Signs Not on filedocumented in this encounter Plan of Treatment Health [...] Name Priority Date/Time Associated Diagnosis Comme nts XR HIPS 2 VW LEFT Routine 11/12/2020 1:07 PM Pain Res ults for this SOCIAL SCIENCE PROFESSOR procedure are i n the results section. documented in this encounter Results XR HIPS 2 VW LEFT (11/12/2020 1:07 PM SOCIAL SCIENCE PROFESSOR) Specimen Narrative Performed At This result has an attachment that is no t available. Implant in good position, no signs of loosening or subsidence or otherwise PACS failure prosthesis. Interval between implants is excel lent with no evidence of wear. Performing Organization Address City/State/Zipcode Phone Number PACS documented in this encounter Visit Diagnoses Diagnosis Pain Generalized pain documented in this encounter Insurance Payer Benefit Plan / Subscriber ID Effective Phone Address T ype Group Dates MEDICARE MEDICARE PART [id number] 2014-Pre [phone] Medicare A & B sent [phone] [id number] [place] [phone] COMMERCIAL COMMERCIAL [id number] 2019-Pres HMO /PPO/POS NON-CONTRACT NON-CONTRACT ent GENERIC GENERIC documented as of this encounter
--- OUTSIDE RECORDS SUMMARY | 2020-11-26 12:34 | XMS REPORT | Summary of Care ---
:1950 Author Organization [facility] Address [address] [place] [address] Care Team Providers Name Role Phone Armando Manriquez Primary Care Provider Reason for Referral Radiology Services (Routine) Status Reason Specialty Diagnoses / Referred By Referred To Procedures Contact Contact New Request Diagnostic Diagnoses Pain Sumeet Amezcua Radiology Procedures XR HIPS 2 VW LEFT MD Giuliano [address] [place] [address] [place] [address] Reason for Visit Reason Comments Follow-up Left hip Pain (Routine) Status Reason Specialty Diagnoses / Referred By Referred To Procedures Contact Contact Closed ORT-ORTHOPAEDIC Diagnoses FU / LT Hip Pain s/p LT THR 2012 Sumeet Amezcua Craig SURGERY / Procedures CONSULT/REFERRAL ORTHOPAEDIC SURGERY FOLLOW-UP VISIT MD Giuliano Nobles MD Orthopedic Surgery [address] [place] [phone] Phone: Fax: Encounter Details Date Type Department Care Team Description 11/12/[address] 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 Pulse 74 11/12/2020 12:56 PM [employer]PER[employer] Temperature - - Respiratory Rate 18 11/12/2020 12:56 PM [employer]PER[employer]OR Oxygen Saturation - - Inhaled Oxygen Concentration - - Weight 86.2 kg (190 lb) 11/12/2020 12:56 PM [employer] SUPER[employer] Height 165.1 cm (5' 5") 11/12/2020 12:56 PM [employer]PER[employer] Body Mass Index 31.62 11/12/2020 12:56 PM [employer] SUPER[employer]OR documented in this encounter Progress Notes Leonie [...] file Gets together: Not on file Attends temple service: Not on file Active member of [...] days to discuss results and treatment options. [employer]ING [employer]PERVISOR documented in this encounter Plan of Treatment [...] HIPS 2 VW LEFT (11/12/2020 1:07 PM LO[employer]ING [employer]LOADING SUPERVISOR) Specimen Narrative Performed At This result has [...] T ype Group Dates MEDICARE MEDICARE PART [id number] 2014-Pre [phone] Medicare A & B sent [phone] JING العلي [id number] COMMERCIAL COMMERCIAL [id number] 2019-Pres HMO /PPO/POS NON-CONTRACT NON-CONTRACT ent GENERIC GENERIC documented as of this encounter
[2020-11-26] MEDS ORDERED: LIDOCAINE VISCOUS 2% SOLN 15 ML UDC ONE (13:31)
[2020-11-26] MEDS ORDERED: MECLIZINE HCL 12.5 MG TAB ONE (13:31)
[2020-11-26] MEDS ORDERED: MAGNES/ALUMIN/SIMET 30ML UCUP ONE (13:31)
[2020-11-26] MEDS ORDERED: ONDANSETRON 4 MG (ODT) TAB ONE (13:32)
--- NOTE | 2020-11-26 13:47 | RAD REPORT ---
EXAM DESCRIPTION: CT - Head Brain Wo Cont - 11/26/2020 1:42 pm CLINICAL HISTORY: DIZZINESS Headache, drowsiness COMPARISON: HEAD BRAIN W O CONTRAST dated 02/13/2013 TECHNIQUE: All CT scans are performed using dose optimization technique as appropriate and may inclu de automated exposure control or mA/KV adjustment according to patient size. FINDINGS: No intracranial hemorrhage, hydrocephalus or extra-axial fluid collection.No areas of brai n edema or evidence of midline shift. The paranasal sinuses and mastoids are clear. The calvarium is intact. IMPRESSION: No acute intracranial abnormality.
--- NOTE | 2020-11-26 14:19 | EDPHYS ---
Physician Documentation [facility] Name: Nessa Gaona Age: 70 yrs Sex: Female : 1950 Arrival Date: 11/26/2020 Time: 12:32 Bed 5 Private MD: ED Physician Tobin Rodrigues HPI: 11/26 13:36 This 70 yrs old Female presents to ER via EMS with complaints of Nausea, jr8 Dizziness. 13:36 Onset: The symptoms/episode began/occurred gradually, 3 day(s) ago. Possible causes: Hx jr8 of Vertigo. The symptoms are aggravated by Laying Down. Associated signs and symptoms: Pertinent positives: nausea, vomiting. Severity of symptoms: in the emergency department the symptoms are worse With Becka-Halpike. Patient reports PMHx of Vertigo, Emphysema, and low blood pressure. She denies trauma, syncope,or falls related to the dizziness. Denies history of cardiac issues or Mnire disease. Reports dizziness is worse with lying down. Admits to transporting herself to ED.. Historical: - Allergies: 12:38 adhesive tape; hb - Home Meds: 12:38 ondansetron HCl 4 mg Oral tab as needed [Active]; ibandronate 150 mg oral tab 1 tab hb once moly [Active]; albuterol sulfate 90 mcg/actuation Inhl HFAA as needed [Active]; Boniva 150 mg oral tab 1 tab once moly [Active]; - Immunization history:: Adult Immunizations up to date. - Social history:: Smoking status: Patient denies any tobacco usage or history of. ROS: 13:41 Constitutional: Negative for fever, chills, and weight loss. jr8 13:41 Abdomen/GI: Positive for nausea, vomiting. 13:41 Neuro: Positive for dizziness. 13:41 All other systems are negative. 13:50 ENT: Positive for tinnitus. jr8 Exam: 13:41 Eyes: Nystagmus: Lateral nystagmus noted bilaterally With Becka-hallpike. jr8 13:41 ENT: Exam is negative for 14:14 Cardiovascular: Regular rate and rhythm with a normal S1 and S2. No gallops, murmurs, jr8 or rubs. Normal PMI, no JVD. No pulse deficits. Respiratory: Lungs have equal breath sounds bilaterally, clear to auscultation and percussion. No rales, rhonchi or wheezes noted. No increased work of breathing, no retractions or nasal flaring. Abdomen/GI: Soft, non-tender, with normal bowel sounds. No distension or tympany. No guarding or rebound. No evidence of tenderness throughout. Back: No spinal tenderness. No costovertebral tenderness. Full range of motion. Skin: Warm, dry with normal turgor. Normal color with no rashes, no lesions, and no evidence of cellulitis. MS/ Extremity: Pulses equal, no cyanosis. Neurovascular intact. Full, normal range of motion. 14:14 Neuro: Orientation: to person, place, time \T\ situation. Mentation: is normal, Memory: is normal, Cranial nerves: CN I not tested, CN II- XII are normal as tested, extraocular movements are intact, right lateral nystagmus, left lateral nystagmus, Speech is clear and appropriate. Tongue strength is normal, Cerebellar function: normal finger to nose testing, heel to addison testing is normal, Motor: moves all fours, Sensation: no obvious gross deficits, Gait: not tested. Vital Signs: 12:33 BP 144 / 69; Pulse 71; Resp 18; Temp 98.2(O); Pulse Ox 98% on R/A; Pain 0/10; ss 12:33 BP 144 / 69; Pulse 71; Resp 18; Temp 98.2; Pulse Ox 98% on R/A; Pain 0/10; hb 13:15 BP 148 / 68; Pulse 70; Resp 16; Pulse Ox 99% on R/A; hb 14:31 BP 124 / 60 Supine; Pulse 65; Resp 16; Pulse Ox 99% on R/A; hb MDM: 12:44 Patient medically screened. jr8 13:51 Differential diagnosis:. Differential diagnosis: Meniere, Vertigo, hypotension. Data jr8 reviewed: vital signs, nurses notes, EMS record, EKG, radiologic studies, CT scan. Data interpreted: resource economist: Pulse oximetry: on room air is 99 %. Interpretation: normal. Counseling: I had a detailed discussion with the patient and/or guardian regarding: the historical points, exam findings, and any diagnostic results supporting the discharge/admit diagnosis, radiology results, to return to the emergency department if symptoms worsen or persist or if there are any questions or concerns that arise at home. ED course: Patient is to follow up for vertigo management. Prescriptions given for vertigo and patient educated on when to return to ED. . 11/26 12:44 Order name: CT Head Brain wo Cont; Complete Time: 13:56 jr8 Administered Medications: 13:23 Drug: Meclizine 25 mg Route: PO; hb 14:10 Follow up: Response: No adverse reaction hb 13:23 Drug: Zofran (Ondansetron) 4 mg Route: PO; hb 14:10 Follow up: Response: No adverse reaction hb 13:24 Drug: GI Cocktail without - (Maalox Suspension 30 ml, Lidocaine Liquid 2 % 15 hb ml) Route: PO; 14:10 Follow up: Response: No adverse reaction hb Disposition: 11/27 06:04 Co-signature as Attending Physician, Tobin Rodrigues MD I agree with the assessment and kdr plan of care. Disposition: 11/26/20 14:19 Discharged to Home. Impression: Benign paroxysmal vertigo. - Condition is Stable. - Discharge Instructions: Benign Positional Vertigo. - Prescriptions for Meclizine 25 mg Oral Tablet - take 1 tablet by ORAL route every 8 hours As needed; 30 tablet. Zofran 4 mg Oral Tablet - take 1 tablet by ORAL route every 12 hours As needed; 20 tablet. - Medication Reconciliation Form, Thank You Letter, Antibiotic Education, Prescription Opioid Use form. - Follow up: Private Physician; When: 2 - 3 days; Reason: Recheck today's complaints, Continuance of care, Re-evaluation by your physician. - Problem is new. - Symptoms have improved. Signatures: Dispatcher [employer] EDSC Tobin Rodrigues MD MD kdr Roszak, Josh, PA PA jrShagufta Whaley RN RN Corrections: (The following items were deleted from the chart) 11/26 14:17 13:41 Eyes: Nystagmus: vertical nystagmus noted, bilaterally, With Becka-hallpike, gopal herron 15:30 14:19 11/26/2020 14:19 Discharged to Home. Impression: Benign paroxysmal vertigo. hb Condition is Stable. Forms are Medication Reconciliation Form, Thank You Letter, Antibiotic Education, Prescription Opioid Use. Follow up: Private Physician; When: 2 - 3 days; Reason: Recheck today's complaints, Continuance of care, Re-evaluation by your physician. Problem is new. Symptoms have improved. jr8
--- NOTE | 2020-11-26 14:19 | ER ---
Nurse's Notes [facility] Name: Nessa Gaona Age: 70 yrs Sex: Female : 1950 Arrival Date: 11/26/2020 Time: 12:32 Bed 5 Private MD: Diagnosis: Benign paroxysmal vertigo Presentation: 11/26 12:33 Chief complaint: EMS states: Sent from Dr. Manriquez's office for nausea and dizziness x 3 hb days. Pt reports the dizziness is much worse when lying supine, partially relieved by sitting erect. Coronavirus screen: At this time, the client does not indicate any symptoms associated with coronavirus-19. Ebola Screen: No symptoms or risks identified at this time. Initial Sepsis Screen: Does the patient meet any 2 criteria? No. Patient's initial sepsis screen is negative. Does the patient have a suspected source of infection? No. Patient's initial sepsis screen is negative. Risk Assessment: Do you want to hurt yourself or someone else? Patient reports no desire to harm self or others. Onset of symptoms was November 23, 2020. 12:33 Method Of Arrival: EMS: [facility] 12:33 Acuity: VAN 3 hb Triage Assessment: 12:38 General: Appears in no apparent distress. Behavior is calm, cooperative. Pain: Denies hb pain. EENT: No signs and/or symptoms were reported regarding the EENT system. Neuro: Level of Consciousness is awake, alert, obeys commands, Oriented to person, place, time, situation, Reports dizziness. Cardiovascular: Capillary refill < 3 seconds Patient's skin is warm and dry. Rhythm is regular. Respiratory: Respiratory effort is even, unlabored, Respiratory pattern is regular, symmetrical. GI: Reports nausea. : No signs and/or symptoms were reported regarding the genitourinary system. Derm: Skin is pink, warm \T\ dry. Musculoskeletal: No signs and/or symptoms reported regarding the musculoskeletal system. Historical: - Allergies: 12:38 adhesive tape; hb - Home Meds: 12:38 ondansetron HCl 4 mg Oral tab as needed [Active]; ibandronate 150 mg oral tab 1 tab hb once moly [Active]; albuterol sulfate 90 mcg/actuation Inhl HFAA as needed [Active]; Boniva 150 mg oral tab 1 tab once moly [Active]; - Immunization history:: Adult Immunizations up to date. - Social history:: Smoking status: Patient denies any tobacco usage or history of. Screenin:39 Abuse screen: Denies threats or abuse. Denies injuries from another. Nutritional hb screening: No deficits noted. Tuberculosis screening: No symptoms or risk factors identified. Fall Risk Total Genao Fall Scale indicates Low Risk Score (25-44 pts). Fall prevention measures have been instituted. Side Rails Up X 2 Frequent Obs/Assesments occuring As available Patient and Family Educated on Fall Prevention Program and strategies. Assessment: 12:39 General: see triage assessment . hb 13:24 Reassessment: Pt c/o burning epigastric pain and nausea, JING Jennings notified, medicated as hb ordered. NAD, VSS, awaiting CT at this time. 14:32 Reassessment: Pt was unable to sit on side of bed for orthostatics due to worsening hb dizziness. Assisted back to supine and JING Jennings notified. Vital Signs: 12:33 BP 144 / 69; Pulse 71; Resp 18; Temp 98.2(O); Pulse Ox 98% on R/A; Pain 0/10; ss 12:33 BP 144 / 69; Pulse 71; Resp 18; Temp 98.2; Pulse Ox 98% on R/A; Pain 0/10; hb 13:15 BP 148 / 68; Pulse 70; Resp 16; Pulse Ox 99% on R/A; hb 14:31 BP 124 / 60 Supine; Pulse 65; Resp 16; Pulse Ox 99% on R/A; hb ED Course: 12:32 Patient arrived in ED. ss 12:33 Shagufta Finley, RN is Primary Nurse. hb 12:35 Triage completed. hb 12:38 Arm band placed on. hb 12:39 Patient has correct armband on for positive identification. Placed in gown. Bed in low hb position. Call light in reach. Side rails up X2. implant polisher on. Pulse ox on. NIBP on. 12:44 Dick Jackson PA is PHCP. jr8 12:44 Tobin Rodrigues MD is Attending Physician. jr8 13:42 CT Head Brain wo Cont In Process Unspecified. EDMS 15:30 No provider procedures requiring assistance completed. Patient did not have IV access hb during this emergency room visit. Administered Medications: 13:23 Drug: Meclizine 25 mg Route: PO; hb 14:10 Follow up: Response: No adverse reaction hb 13:23 Drug: Zofran (Ondansetron) 4 mg Route: PO; hb 14:10 Follow up: Response: No adverse reaction hb 13:24 Drug: GI Cocktail without - (Maalox Suspension 30 ml, Lidocaine Liquid 2 % 15 hb ml) Route: PO; 14:10 Follow up: Response: No adverse reaction hb Outcome: 14:19 Discharge ordered by MD. herron 15:30 Patient left the ED. hb 15:30 Discharged to home via wheelchair. hb 15:30 Condition: stable 15:30 Discharge instructions given to patient, Instructed on discharge instructions, follow up and referral plans. medication usage, Demonstrated understanding of instructions, follow-up care, medications, Prescriptions given X 2. Signatures: Dispatcher [employer] EDHI Deya Boles RN RN Dick Jackson PA PA jr8 Shagufta Finley RN RN hb
[2020-11-26 15:36] VITALS: TEMP 98.2
[2020-11-26 15:37] VITALS: O2SAT 99
[2020-11-26 15:38] VITALS: BP 124/60
== END 2020-11-26 15:30 | disposition home or self-care (01) ==
LOC: ER 12:31
DX: H81.10 Benign paroxysmal vertigo, unspecified ear (principal); Z91.048 Other nonmedicinal substance allergy status
CPT/HCPCS: 70450; 99284